=== PATIENT | male | born 1945 | race Caucasian/White ===

== ENCOUNTER → 2016-10-28 | Outpatient (CLI) | payer MEDICARE, OTHER ==
[~2016-10-28] MED LIST: ALBU8I INH; ALEN70TA39 PO; ASPI1TAB69 PO; CENTTAB9 PO; LISI-357 PO; LISI-519 PO; MULT1TAB84 PO; PRED20 PO; SM A81CH CHEW; ZOCO40TA PO
[2016-10-30 23:55] LABS: HCV RNA PCR IU/ML LESS THAN 15 IU/mL (()); HCV RNA PCR LOGIU/ML LESS THAN 1.18 (())
== END ==
LOC: CLAB 09:08
DX: Z11.59 Encounter for screening for other viral diseases (principal)
CPT/HCPCS: 36415; 86803; 87522

== ENCOUNTER → 2017-01-15 | Outpatient (CLI) | payer MEDICARE, OTHER ==
[2017-01-15 09:53] LABS: MEAN CELL VOLUME 90.7 FL (80.0-100.0); MEAN CORPUSCULAR HEMOGLOBIN 30.9 PG (27.0-34.0); PLATELET COUNT 164 TH/MM3 (150-450); RED BLOOD COUNT 5.06 MIL/MM3 (4.50-5.90); RED CELL DISTRIBUTION WIDTH 14.7 % (11.6-17.2); REVIEW FLAG FINAL; WHITE BLOOD COUNT 8.6 TH/MM3 (4.0-11.0)
[2017-01-15 10:12] LABS: ALKALINE PHOSPHATASE 84 U/L (45-117); ALT (GPT) 25 U/L (12-78); ANION GAP 3 MEQ/L (5-15); AST (GOT) 22 U/L (15-37); BICARBONATE 31.1 MEQ/L (21.0-32.0); BLOOD UREA NITROGEN 17 MG/DL (7-18); CHLORIDE 103 MEQ/L (98-107); GLOMERULAR FILTRATION RATE 77 ML/MIN (>89); GLUCOSE,FASTING 97 MG/DL (74-99); HDL CHOLESTEROL 31.3 MG/DL (40.0-60.0); LDL CHOLESTEROL 45 MG/DL (0-99); SODIUM (NA) 137 MEQ/L (136-145); TOTAL BILIRUBIN ADULT 0.4 MG/DL (0.2-1.0)
[2017-01-15 10:18] LABS: POTASSIUM 4.6 MEQ/L (3.5-5.1)
[2017-01-15 10:53] LABS: MICRO ALBUMIN RANDOM URINE RAW 9.2 MG/L (0.0-30.0)
== END ==
LOC: CLAB 09:10
DX: I73.9 Peripheral vascular disease, unspecified (principal); I10 Essential (primary) hypertension
CPT/HCPCS: 36415; 80053; 80061; 82043; 85027

== ENCOUNTER 2017-01-18 08:32 | Emergency (ER) | payer MEDICARE, OTHER ==
[~2017-01-18] VITALS: Ht 175.3 cm; Wt 70.0 kg
[2017-01-18] VITALS (8 sets, daily range): BP systolic 93–175; BP diastolic 60–96; PULSE 97–134; RESP 15–28; TEMP 98.6; O2SAT 74–100
[~2017-01-18 08:32] MED LIST changes: -ASPI1TAB69 PO; -LISI-519 PO; -MULT1TAB84 PO; -PRED20 PO
[2017-01-18] MEDS ORDERED: RESP: ALBUTEROL 2.5 MG/IPRATROPIUM 0.5 MG NEB (SCH) ONE (08:45)
[2017-01-18] MEDS ORDERED: LISI-519 PO (08:50)
[2017-01-18] MEDS ORDERED: ZOCO40TA PO (08:50)
[2017-01-18] MEDS ORDERED: ASPI1TAB69 PO (08:50)
[2017-01-18] MEDS ORDERED: MULT1TAB84 PO (08:50)
--- NOTE | 2017-01-18 09:14 | PD ---
HPI Chief Complaint: Respiratory Distress Time Seen by Provider: 08:56 Travel History International Travel<30 days: No Contact w/Intl Traveler<30days: No Traveled to known affect area: No History of Present Illness HPI This patient complains of shortness of breath. Symptoms are severe. He woke up this morning very short of breath. Paramedics were called. He had room air saturation of 74%. He arrives on a nonrebreather very dyspneic and a heart rate of 140. He is critically ill. He has long-standing COPD and still smokes. He uses inhalers and Spiriva at home. No chest pain or fever. He has chronic cough no alleviating factors. Duration is 3 hours PFSH Past Medical History Arthritis: No Asthma: Yes Autoimmune Disease: No Anxiety: No Depression: No Heart Rhythm Problems: No Cancer: No Cardiovascular Problems: Yes (cabg on mon) High Cholesterol: Yes Chemotherapy: No Chest Pain: No Congestive Heart Failure: No COPD: Yes Cerebrovascular Accident: No Diabetes: Yes (borderline) Diminished Hearing: No Endocrine: No GERD: No Genitourinary: No Hiatal Hernia: No Hypertension: Yes Kidney Stones: No Musculoskeletal: No Neurologic: No Psychiatric: No Reproductive: No Respiratory: Yes Migraines: No Radiation Therapy: No Renal Failure: No Seizures: No Sickle Cell Disease: No Sleep Apnea: No Thyroid Disease: No Ulcer: No Tetanus Vaccination: Unknown ?: Not Past Surgical History Abdominal Surgery: No AICD: No Arteriovenous Shunt: No Cardiac Surgery: Yes Ear Surgery: No Endocrine Surgery: No Eye Surgery: No Genitourinary Surgery: No Insulin Pump: No Joint Replacement: No Oral Surgery: No Pacemaker: No Thoracic Surgery: No Social History Alcohol Use: Yes (OCC) Tobacco Use: Yes (1/2 PPD) Substance Use: No Allergies-Medications (Allergen,Severity, Reaction): Coded Allergies: No Known Allergies (Unverified , 01/18/17) Reported Meds & Prescriptions Reported Meds & Active Scripts Active Reported Zocor (Simvastatin) 40 Mg Tab 40 Mg PO DAILY Multivitamin Adults (Multiple Vitamins W/ Minerals) 1 Tab 1 Tab PO DAILY Lisinopril 5 Mg Tab 5 Mg PO DAILY Aspirin 81 Mg Tabdr 81 Mg PO DAILY Review of Systems General / Constitutional: No: Fever Eyes: No: Visual changes HENT: Positive: Congestion, No: Headaches Cardiovascular: Positive: Tachycardia, No: Chest Pain or Discomfort Respiratory: Positive: Cough, Shortness of Breath, Wheezing Gastrointestinal: No: Abdominal Pain Genitourinary: No: Dysuria Musculoskeletal: No: Pain Skin: No Rash Neurologic: No: Weakness Psychiatric: No: Depression Endocrine: No: Polydipsia Hematologic/Lymphatic: No: Easy Bruising Physical Exam Narrative GENERAL: Well-nourished, well-developed patient in prominent respiratory distress. SKIN: Focused skin assessment reveals no rash and nodules. Skin is Warm and dry. HEAD: Atraumatic. Normocephalic. EYES: Pupils equal and round. No scleral icterus. No injection or drainage. ENT: No nasal bleeding or discharge. Mucous membranes pink and moist. NECK: Trachea midline. No JVD. CARDIOVASCULAR: Regular rate and rhythm. No murmur appreciated. Tachycardic 140 RESPIRATORY: Positive accessory muscle use. Diminished breath sounds throughout with some rhonchi and expiratory wheeze. Breath sounds equal bilaterally. GASTROINTESTINAL: Abdomen soft, non-tender, nondistended. Hepatic and splenic margins not palpable. MUSCULOSKELETAL: No obvious deformities. No clubbing. No cyanosis. No edema. NEUROLOGICAL: Awake and alert. No obvious cranial nerve deficits. Motor grossly within normal limits. Normal speech. PSYCHIATRIC: Appropriate mood and affect; insight and judgment poor. Data Data Last Documented VS Vital Signs Date Time Temp Pulse Resp B/P Pulse Ox O2 Delivery O2 Flow Rate FiO2 01/18/17 10:49 97 15 109/66 100 Nasal Cannula 2 01/18/17 09:57 50 01/18/17 08:48 98.6 Orders Albuterol-Ipratropium Neb (Duoneb Neb) (01/18/17 08:45) Complete Blood Count With Diff (01/18/17 09:05) Basic Metabolic Panel (Bmp) (01/18/17 09:05) Iv Access Insert/Monitor (01/18/17 09:05) Electrocardiogram (01/18/17 09:05) Ecg Monitoring (01/18/17 09:05) Oximetry (01/18/17 09:05) Oxygen Administration (01/18/17 09:05) Chest, Single Ap (01/18/17 09:05) Sodium Chloride 0.9% Flush (Ns Flush) (01/18/17 09:15) Albuterol-Ipratropium Neb (Duoneb Neb) (01/18/17 09:15) Resp Bipap / Cpap Non Invas Vt (01/18/17 ) Sodium Chlor 0.9% 1000 Ml Inj (Ns 1000 M (01/18/17 10:15) Labs Laboratory Tests Test 01/18/17 09:15 White Blood Count 9.8 TH/MM3 Red Blood Count 5.54 MIL/MM3 Hemoglobin 16.8 GM/DL Hematocrit 50.7 % Mean Corpuscular Volume 91.5 FL Mean Corpuscular Hemoglobin 30.3 PG Mean Corpuscular Hemoglobin 33.1 % Concent Red Cell Distribution Width 14.7 % Platelet Count 187 TH/MM3 Mean Platelet Volume 11.5 FL Neutrophils (%) (Auto) 63.6 % Lymphocytes (%) (Auto) 24.8 % Monocytes (%) (Auto) 8.1 % Eosinophils (%) (Auto) 3.1 % Basophils (%) (Auto) 0.4 % Neutrophils # (Auto) 6.2 TH/MM3 Lymphocytes # (Auto) 2.4 TH/MM3 Monocytes # (Auto) 0.8 TH/MM3 Eosinophils # (Auto) 0.3 TH/MM3 Basophils # (Auto) 0.0 TH/MM3 CBC Comment AUTO DIFF Differential Total Cells 100 Counted Neutrophils % (Manual) 60 % Band Neutrophils % 2 % Lymphocytes % 17 % Monocytes % 7 % Eosinophils % 4 % Basophils % 2 % Neutrophils # (Manual) 6.1 TH/MM3 Differential Comment FINAL DIFF MANUAL Atypical Lymphocytes 8 % Platelet Estimate NORMAL Platelet Morphology Comment ENLARGED Red Cell Morphology Comment NORMAL Sodium Level 140 MEQ/L Potassium Level 4.5 MEQ/L Chloride Level 105 MEQ/L Carbon Dioxide Level 28.6 MEQ/L Anion Gap 6 MEQ/L Blood Urea Nitrogen 15 MG/DL Creatinine 0.93 MG/DL Estimat Glomerular Filtration 81 ML/MIN Rate Random Glucose 120 MG/DL Calcium Level 9.2 MG/DL [facility] Medical Decision Making Medical Screen Exam Complete: Yes Emergency Medical Condition: Yes Medical Record Reviewed: Yes Differential Diagnosis Respiratory failure, COPD, pneumonia Narrative Course I have reviewed the patient's electronic medical record. Patient's been here multiple times before due to COPD, last was 2016 Patient is critically ill IV placed I gave him a series of 3 nebulizers He was still very labored despite 100% nonrebreather I initiated BiPAP therapy to ease the work of breathing I gave him IV Solu-Medrol I reviewed his chest x-ray shows some COPD type changes I reviewed his EKG which shows sinus tachycardia 140 Extended cardiac monitoring reveals sinus tachycardia CBC is normal Metabolic profile is normal So this patient was deathly critical on arrival However he fairly rapidly turned around Nebulizers were very helpful After a while on BiPAP I took him off of the BiPAP and placed him on nasal cannula He continued to do well and I have now just ambulated him in the department and he does not feel short of breath Saturations are 99% He wants to go home and does not want to stay in the hospital Most importantly he needs to quit smoking Critical Care Narrative Aggregate critical care time was 37 minutes. Time to perform other separately billable procedures was not included in the critical care time. My time did not include minutes spent treating any other patients simultaneously or on activities that did not directly contribute to the patient's treatment. The services I provided to this patient were to treat and/or prevent clinically significant deterioration that could result in: Respiratory failure, cardiopulmonary arrest, I provided critical care services requiring my management, as noted below: Chart data review, documentation time, medication orders and management, vital sign assessments/reviewing monitor data, ordering and reviewing lab tests, ordering and interpreting/reviewing x-rays and diagnostic studies, care of the patient and discussion of the patient with the admitting physicians. Diagnosis Primary Impression: Acute respiratory failure with hypoxia Additional Impression: COPD exacerbation Additional Instructions: The patient was advised to follow up with their physician and return if they worsen. Quit smoking Med/Other Pt SpecificInfo: Prescription(s) given Scripts Prednisone 20 Mg Tab40 Mg PO DAILY #10 TAB Ref 0 Take 40 mg (2 tablets) daily for 5 days Prov:Samir Le MD 01/18/17 Disposition: 01 DISCHARGE HOME Condition: Stable Samir Le MD Jan 18, 2017 09:14
[2017-01-18] MEDS ORDERED: SODIUM CHLORIDE 0.9% FLUSH 10 ML FLUSH IVF PRN (09:15)
[2017-01-18] MEDS: RESP: ALBUTEROL 2.5 MG/IPRATROPIUM 0.5 MG NEB (SCH) INH ×2 (09:15→09:16)
[2017-01-18 09:34] LABS: AUTOMATED NEUTROPHIL # 6.2 TH/MM3 (1.8-7.7); BASOPHIL % 0.4 % (0.0-2.0); EOSINOPHIL # 0.3 TH/MM3 (0-0.4); EOSINOPHIL % 3.1 % (0.0-4.0); HEMATOCRIT 50.7 % (39.0-51.0); LYMPH % 24.8 % (9.0-44.0); LYMPHOCYTE # 2.4 TH/MM3 (1.0-4.8); MEAN CELL VOLUME 91.5 FL (80.0-100.0); MEAN CORPUSCULAR HEMOGLOBIN 30.3 PG (27.0-34.0); MEAN CORPUSCULAR HGB CONC 33.1 % (32.0-36.0); MONO % 8.1 % (0.0-8.0); NEUT % 63.6 % (16.0-70.0); PLATELET COUNT 187 TH/MM3 (150-450); RED BLOOD COUNT 5.54 MIL/MM3 (4.50-5.90); RED CELL DISTRIBUTION WIDTH 14.7 % (11.6-17.2); WHITE BLOOD COUNT 9.8 TH/MM3 (4.0-11.0)
[2017-01-18 09:37] LABS: HEMO FLAGS AUTO DIFF
[2017-01-18 10:05] LABS: BICARBONATE 28.6 MEQ/L (21.0-32.0); POTASSIUM 4.5 MEQ/L (3.5-5.1)
[2017-01-18] MEDS ORDERED: SODIUM CHLOR 0.9% 1000 ML INJ 1,000 ML IV ONE (10:15)
--- NOTE | 2017-01-18 10:21 | RADRPT ---
EXAM DATE/TIME: 01/18/2017 09:10 [facility] COMPARISON: CHEST SINGLE AP, February 19, 2014, 5:48. INDICATIONS : Short of Breath MEDICAL HISTORY : Diabetes mellitus type II. Chronic obstructive pulmonary disease. Emphysema. Hypertension, Asthma SURGICAL HISTORY : CABG. ENCOUNTER: Initial ACUITY: 2 days PAIN SCORE: 0/10 LOCATION: Bilateral chest FINDINGS: Single AP view of the chest. Hyperaeration suggesting emphysema. Linear opacity in the lung bases ind icating scarring versus atelectasis. No evidence of pleural effusion or pneumothorax. Median sternoto my wires. Cardiomediastinal silhouette within normal limits. CONCLUSION: Chronic lung disease with hyperaeration indicating emphysema. Opacity of the lung bases likely repres enting scarring or atelectasis. Juan Peters MD on January 18, 2017 at 10:18 Board Certified Radiologist. This report was verified electronically.
[2017-01-18 10:27] LABS: ATYPICAL LYMPHOCYTES 8 % (0-0); BANDS 2 % (0-6); BASOPHILS 2 % (0-2); EOSINOPHILS 4 % (0-4); NEUTROPHIL # MANUAL DIFF 6.1 TH/MM3 (1.8-7.7); PLATELET ESTIMATE SMEAR NORMAL (NORMAL); PLATELET MORPHOLOGY ENLARGED (NORMAL); POLYS (SEG NEUTROPHILS) 60 % (16-70); SCAN/DIFF FINAL DIFF MANUAL; WBC DIFF SAMPLE 100
[2017-01-18] MEDS ORDERED: PRED20 PO (11:39)
--- NOTE | 2017-01-18 18:36 | EKG ---
Date Performed: 01/18/2017 Time Performed: 08:38:17 PTAGE: 71 years EKG: SINUS TACHYCARDIA ABNORMAL RHYTHM ECG Compared to prior tracing no significant change DOCTOR: Armando Hylton Interpretating Date/Time 01/18/2017 18:35:39
== END 2017-01-18 12:09 | disposition home or self-care (01) ==
LOC: NEPC 08:32
DX: J96.01 Acute respiratory failure with hypoxia (principal); J44.1 Chronic obstructive pulmonary disease with (acute) exacerbation; Z95.1 Presence of aortocoronary bypass graft; E78.00 Pure hypercholesterolemia, unspecified; J44.9 Chronic obstructive pulmonary disease, unspecified; I10 Essential (primary) hypertension; R00.0 Tachycardia, unspecified
CPT/HCPCS: 71010; 80048; 85007; 85027; 93005; 94002; 94640; 94664; 96360; 99285; J7030

== ENCOUNTER 2017-04-07 07:53 | Inpatient (IN) | payer MEDICARE, OTHER ==
[~2017-04-07] VITALS: Ht 170.2 cm; Wt 67.2 kg
[2017-04-07] VITALS (23 sets, daily range): BP systolic 105–232; BP diastolic 55–103; PULSE 0–122; RESP 0–22; TEMP 96.4–98.7; O2SAT 99–100
[~2017-04-07 07:53] MED LIST changes: -ALBU8I INH; -ALEN70TA39 PO; +ASPI1TAB69 PO; -CENTTAB9 PO; +EPINEPHrine HCL (1:10,000) 1 MG/10 ML SYRINGE IV ONE; -LISI-357 PO; +LISI-519 PO; +MULT1TAB84 PO; +PRED20 PO; -SM A81CH CHEW
[2017-04-07] MEDS ORDERED: methylPREDNISolone SOD SUCC 125 MG/2 ML VIAL IVP ONE (08:15)
[2017-04-07] MEDS: RESP: ALBUTEROL 2.5 MG/IPRATROPIUM 0.5 MG NEB (SCH) INH (08:17)
[2017-04-07 08:22] LABS: AUTOMATED NEUTROPHIL # 4.8 TH/MM3 (1.8-7.7); BASOPHIL # 0.1 TH/MM3 (0-0.2); BASOPHIL % 0.9 % (0.0-2.0); EOSINOPHIL # 0.1 TH/MM3 (0-0.4); EOSINOPHIL % 1.5 % (0.0-4.0); HEMATOCRIT 50.5 % (39.0-51.0); LYMPH % 37.5 % (9.0-44.0); LYMPHOCYTE # 3.5 TH/MM3 (1.0-4.8); MEAN CELL VOLUME 96.7 FL (80.0-100.0); MEAN CORPUSCULAR HGB CONC 32.1 % (32.0-36.0); NEUT % 52.1 % (16.0-70.0); PLATELET COUNT 197 TH/MM3 (150-450); RED BLOOD COUNT 5.22 MIL/MM3 (4.50-5.90); RED CELL DISTRIBUTION WIDTH 15.4 % (11.6-17.2); WHITE BLOOD COUNT 9.3 TH/MM3 (4.0-11.0)
[2017-04-07 08:23] LABS: I-STAT POTASSIUM 4.5 MMOL/L (3.5-4.9); I-STAT SODIUM 143 MMOL/L (138-146)
--- NOTE | 2017-04-07 08:23 | RADRPT ---
EXAM DATE/TIME: 04/07/2017 08:04 [facility] COMPARISON: CHEST SINGLE AP, January 18, 2017, 9:10. INDICATIONS : Post intubation. MEDICAL HISTORY : Diabetes mellitus type II. Chronic obstructive pulmonary disease. Emphysema. Hypertension. Asthma . SURGICAL HISTORY : CABG. ENCOUNTER: Initial ACUITY: 1 day PAIN SCORE: Non-responsive. LOCATION: Bilateral chest FINDINGS: 2 portable frontal views of the chest show an endotracheal tube with the tip 4 cm proximal to amari. Median sternotomy wires. Lungs are hyperaerated. No infiltrate or effusion. An elliptical air-like d ensity is seen overlying the subpulmonic space on the left. The stomach is gas distended. CONCLUSION: 1. Endotracheal tube in good position. 2. Hyperaeration. 3. Small elliptical air like density involving the subpulmonic space on the left. I'm unsure if this relates to eventration of the diaphragm with a gas distended stomach or this could relate to a tiny s ubpulmonic pneumothorax. PA and lateral views of the chest would be able to help differentiate. Lc Packer Jr., MD on April 07, 2017 at 8:18 Board Certified Radiologist. This report was verified electronically.
[2017-04-07 08:27] LABS: HEMO FLAGS AUTO DIFF
[2017-04-07] MEDS ORDERED: MIDAZOLAM HCL 2 MG/2 ML VIAL IV PUSH ONE ×3 (08:30→09:15)
[2017-04-07] MEDS ORDERED: PROPOFOL 1000 MG/100 ML INJ 100 ML IV SCH (08:30)
[2017-04-07] MEDS ORDERED: ETOMIDATE 20 MG/10 ML VIAL IVP ONE (08:30)
[2017-04-07] MEDS ORDERED: SUCCINYLCHOLINE CHLORIDE 200 MG/10 ML VIAL IVP ONE (08:30)
[2017-04-07 08:33] LABS: BLOOD GAS BASE EXCESS -4.7 mmol/L (-2-2); BLOOD GAS CARBOXYHEMOGLOBIN 3.1 % (0-4); BLOOD GAS HCO3 22 mmol/L (22-26); BLOOD GAS METHEMOGLOBIN 0.7 % (0-2); BLOOD GAS O2 HGB SATURATION 96 % (90-100); BLOOD GAS OXYGEN CONTENT 21.8 Vol % (12.0-20.0); BLOOD GAS PCO2 57 mmHg (38-42); BLOOD GAS PO2 459 mmHG (61-120); BLOOD GAS TOTAL HGB 15.3 G/DL (12.0-16.0); CRITICAL VALUE YES; OXYGEN DEVICE VENT; TEMP CORR TO 98.6
[2017-04-07 08:34] LABS: DRAW SITE LT RADIAL; FIO2 100 %; NUMBER OF ARTERIAL PUNCTURES 1; STAT YES; ULNAR PULSE PRESENT; VENT SETTINGS AC475/16/PEEP5
[2017-04-07 08:34] LABS: APTT (PATIENT) 26.5 SEC (24.3-30.1); INTERNATIONAL NORMALIZED RATIO 1.1 RATIO; PROTHROMBIN TIME - PATIENT 11.7 SEC (9.8-11.6)
[2017-04-07 08:44] LABS: MAGNESIUM 2.2 MG/DL (1.5-2.5)
[2017-04-07 08:47] LABS: CREATINE KINASE 67 U/L (39-308)
[2017-04-07 08:48] LABS: ALT (GPT) 25 U/L (12-78); ANION GAP 13 MEQ/L (5-15); AST (GOT) 23 U/L (15-37); BICARBONATE 19.1 MEQ/L (21.0-32.0); BLOOD UREA NITROGEN 19 MG/DL (7-18); CHLORIDE 108 MEQ/L (98-107); GLOMERULAR FILTRATION RATE 73 ML/MIN (>89); POTASSIUM 4.6 MEQ/L (3.5-5.1); SODIUM (NA) 140 MEQ/L (136-145)
--- NOTE | 2017-04-07 08:55 | PD ---
HPI Chief Complaint: Respiratory Distress Time Seen by Provider: 08:00 Travel History International Travel<30 days: No Contact w/Intl Traveler<30days: No Traveled to known affect area: No History of Present Illness HPI 71-year-old male presents through triage in acute cardiopulmonary arrest. They were performing CPR as they wheeled him back. When he got in the room he had agonal respirations and a faint carotid pulse. CPR was held. Blood pressure cycled. Report from triage staff was he had no pulse and no respirations when they got him out of the truck. History is severely limited. [facility] Past Medical History Narrative Medical By records Arthritis: No Asthma: Yes Autoimmune Disease: No Anxiety: No Depression: No Heart Rhythm Problems: No Cancer: No Cardiovascular Problems: Yes (cabg on thu) High Cholesterol: Yes Chemotherapy: No Chest Pain: No Congestive Heart Failure: No COPD: Yes Cerebrovascular Accident: No Diabetes: Yes (borderline) Patient Takes Glucophage: No Diminished Hearing: No Endocrine: No GERD: No Genitourinary: No Hiatal Hernia: No Hypertension: Yes Kidney Stones: No Musculoskeletal: No Neurologic: No Psychiatric: No Reproductive: No Respiratory: Yes Migraines: No Radiation Therapy: No Renal Failure: No Seizures: No Sickle Cell Disease: No Sleep Apnea: No Thyroid Disease: No Ulcer: No ?: Not Past Surgical History Narrative Surgical By records Abdominal Surgery: No AICD: No Arteriovenous Shunt: No Cardiac Surgery: Yes Ear Surgery: No Endocrine Surgery: No Eye Surgery: No Genitourinary Surgery: No Insulin Pump: No Joint Replacement: No Oral Surgery: No Pacemaker: No Thoracic Surgery: No Social History Narrative Social History By records Alcohol Use: Yes (OCC) Tobacco Use: Yes (1/2 PPD) Substance Use: No Allergies-Medications (Allergen,Severity, Reaction): Coded Allergies: No Known Allergies (Unverified , 01/18/17) Reported Meds & Prescriptions Reported Meds & Active Scripts Active Prednisone 20 Mg Tab 40 Mg PO DAILY Take 40 mg (2 tablets) daily for 5 days Reported Zocor (Simvastatin) 40 Mg Tab 40 Mg PO DAILY Multivitamin Adults (Multiple Vitamins W/ Minerals) 1 Tab 1 Tab PO DAILY Lisinopril 5 Mg Tab 5 Mg PO DAILY Aspirin 81 Mg Tabdr 81 Mg PO DAILY Review of Systems ROS Limitations: Clinical Condition Physical Exam Exam Limitations: Clinical Condition Narrative GENERAL: Ill-appearing male patient. SKIN: Warm and dry. HEAD: Normocephalic and atraumatic. EYES: No injection or drainage. Pupils equal bilaterally ENT: No nasal drainage noted. NECK: Supple, trachea midline. CARDIOVASCULAR: Regular rate and rhythm on monitor RESPIRATORY: Decreased aeration with expiratory wheezing bilaterally. GASTROINTESTINAL: Abdomen nondistended. NEUROLOGICAL: Unresponsive Data Data Last Documented VS Vital Signs Date Time Temp Pulse Resp B/P Pulse Ox O2 Delivery O2 Flow Rate FiO2 04/07/17 09:00 100 45 04/07/17 08:21 122 Ventilator 04/07/17 08:21 232/103 04/07/17 08:18 0 04/07/17 08:14 98.2 Orders Troponin I (04/07/17 08:01) Ckmb (Isoenzyme) Profile (04/07/17 08:01) Complete Blood Count With Diff (04/07/17 08:01) I-Stat Profile (04/07/17 08:01) I-Stat Creatinine (04/07/17 08:01) Calcium (04/07/17 08:01) Magnesium (Mg) (04/07/17 08:01) Prothrombin Time / Inr (Pt) (04/07/17 08:01) Act Partial Throm Time (Ptt) (04/07/17 08:01) B-Type Natriuretic Peptide (04/07/17 08:01) Chest, Single Ap (04/07/17 08:01) Electrocardiogram (04/07/17 08:01) Oxygen Administration (04/07/17 08:01) Iv Access Insert/Monitor (04/07/17 08:01) Oximetry (04/07/17 08:01) Thyroid Stimulating Hormone (04/07/17 08:02) Phosphorus (Po4) (04/07/17 08:02) Comprehensive Metabolic Panel (04/07/17 08:02) Arterial Blood Gas (Abg) (04/07/17 ) Type And Screen (04/07/17 08:02) Methylprednisolone So Succ Inj (Solumedr (04/07/17 08:15) Albuterol-Ipratropium Neb (Duoneb Neb) (04/07/17 08:15) Lactic Acid Sepsis Protocol (04/07/17 08:09) Urinalysis - C+S If Indicated (04/07/17 08:09) Blood Culture (04/07/17 08:09) Blood Glucose (04/07/17 08:09) Etomidate Inj (Amidate Inj) (04/07/17 08:30) Succinylcholine Inj (Quelicin Inj) (04/07/17 08:30) Propofol 1000 Mg/100 Ml Inj (Diprivan 10 (04/07/17 08:30) ^ Infusion (04/07/17 08:22) RASS (04/07/17 08:22) Neurological Rass Scale HEDY.Q2H (04/07/17 08:22) Midazolam Inj (Versed Inj) (04/07/17 08:30) Ct Pulmonary Angiogram (04/07/17 08:26) Midazolam Inj (Versed Inj) (04/07/17 09:00) Midazolam 100 Mg/Ml Inj (Versed 100 Mg/M (04/07/17 09:00) Sodium Chlor 0.9% 1000 Ml Inj (Ns 1000 M (04/07/17 09:00) Urine Culture (04/07/17 08:00) Iohexol 350 Inj (Omnipaque 350 Inj) (04/07/17 09:05) Admit Order (Ed Use Only) (04/07/17 09:11) Midazolam Inj (Versed Inj) (04/07/17 09:15) Labs Laboratory Tests Test 04/07/17 04/07/17 04/07/17 04/07/17 08:00 08:06 08:20 08:27 Urine Color YELLOW Urine Turbidity HAZY Urine pH 7.0 Urine Specific [place] 1.017 Urine Protein NEG mg/dL Urine Glucose (UA) NEG mg/dL Urine Ketones NEG mg/dL Urine Occult Blood TRACE Urine Nitrite NEG Urine Bilirubin NEG Urine Urobilinogen LESS THAN 2.0 MG/DL Urine Leukocyte Esterase NEG Urine RBC 2 /hpf Urine WBC 2 /hpf Urine Squamous Epithelial <1 /hpf Cells Urine Bacteria RARE /hpf Urine Hyaline Casts 3 /lpf Urine Mucus FEW /lpf Microscopic Urinalysis Comment CATH-CULTURE IND White Blood Count 9.3 TH/MM3 Red Blood Count 5.22 MIL/MM3 Hemoglobin 16.2 GM/DL Bedside Hemoglobin 17.3 G/DL Hematocrit 50.5 % Bedside Hematocrit 51.0 % Mean Corpuscular Volume 96.7 FL Mean Corpuscular Hemoglobin 31.0 PG Mean Corpuscular Hemoglobin 32.1 % Concent Red Cell Distribution Width 15.4 % Platelet Count 197 TH/MM3 Mean Platelet Volume 11.0 FL Neutrophils (%) (Auto) 52.1 % Lymphocytes (%) (Auto) 37.5 % Monocytes (%) (Auto) 8.0 % Eosinophils (%) (Auto) 1.5 % Basophils (%) (Auto) 0.9 % Neutrophils # (Auto) 4.8 TH/MM3 Lymphocytes # (Auto) 3.5 TH/MM3 Monocytes # (Auto) 0.7 TH/MM3 Eosinophils # (Auto) 0.1 TH/MM3 Basophils # (Auto) 0.1 TH/MM3 CBC Comment AUTO DIFF Differential Total Cells 100 Counted Neutrophils % (Manual) 47 % Band Neutrophils % 4 % Lymphocytes % 42 % Monocytes % 7 % Neutrophils # (Manual) 4.7 TH/MM3 Nucleated Red Blood Cells 1 /100 WBC Differential Comment FINAL DIFF MANUAL Platelet Estimate NORMAL Platelet Morphology Comment NORMAL Ovalocytes 1+ Prothrombin Time 11.7 SEC Prothromb Time International 1.1 RATIO Ratio Activated Partial 26.5 SEC Thromboplast Time Bedside Sodium 143 MMOL/L Sodium Level 140 MEQ/L Bedside Potassium 4.5 MMOL/L Potassium Level 4.6 MEQ/L Bedside Chloride 105 MMOL/L Chloride Level 108 MEQ/L Carbon Dioxide Level 19.1 MEQ/L Anion Gap 13 MEQ/L Bedside Blood Urea Nitrogen 21 MG/DL Blood Urea Nitrogen 19 MG/DL Creatinine 1.01 MG/DL Bedside Creatinine 0.9 MG/DL Estimat Glomerular Filtration 73 ML/MIN Rate Bedside Glucose 142 MG/DL Random Glucose 141 MG/DL Calcium Level 9.3 MG/DL Phosphorus Level 4.5 MG/DL Magnesium Level 2.2 MG/DL Total Bilirubin 0.6 MG/DL Aspartate Amino Transf 23 U/L (AST/SGOT) Alanine Aminotransferase 25 U/L (ALT/SGPT) Alkaline Phosphatase 99 U/L Total Creatine Kinase 67 U/L Troponin I LESS THAN 0.02 NG/ML B-Type Natriuretic Peptide 30 PG/ML Total Protein 7.6 GM/DL Albumin 3.7 GM/DL Thyroid Stimulating Hormone 3.960 uIU/ML 3rd Gen Lactic Acid Level 5.6 mmol/L Blood Type A POSITIVE Antibody Screen NEGATIVE Blood Gas Puncture Site LT RADIAL Blood Gas Patient Temperature 98.6 Blood Gas HCO3 22 mmol/L Blood Gas Base Excess -4.7 mmol/L Blood Gas Oxygen Saturation 96 % Arterial Blood pH 7.21 Arterial Blood Partial 57 mmHg Pressure CO2 Arterial Blood Partial 459 mmHG Pressure O2 Arterial Blood Oxygen Content 21.8 Vol % Arterial Blood 3.1 % Carboxyhemoglobin Arterial Blood Methemoglobin 0.7 % Blood Gas Hemoglobin 15.3 G/DL Oxygen Delivery Device VENT Blood Gas Ventilator Setting AC475/16/PEEP5 Blood Gas Inspired Oxygen 100 % MDM Medical Decision Making Medical Screen Exam Complete: Yes Emergency Medical Condition: Yes Medical Record Reviewed: Yes (past history confirmed) Interpretation(s) CBC & BMP Diagram 04/07/17 08:06 Last 24 hours Impressions Chest X-Ray 04/07/17800 Signed Impressions: Service Date/Time: Friday, April 07, 2017 08:04 - CONCLUSION: 1. Endotracheal tube in good position. 2. Hyperaeration. 3. Small elliptical air like density involving the subpulmonic space on the left. I'm unsure if this relates to eventration of the diaphragm with a gas distended stomach or this could relate to a tiny subpulmonic pneumothorax. PA and lateral views of the chest would be able to help differentiate. Lc Packer Jr., MD Last [address] Angiography 04/07/17825 Signed Impressions: Service Date/Time: Friday, April 07, 2017 08:52 - CONCLUSION: 1. No evidence for pulmonary embolism. 2. Severe emphysema with probable rounded atelectasis left lower lobe. Followup CT chest in 3 months recommended for stability. 3. 7 mm nodule right upper lobe. This can be followed as well. Gurpreet Parnell MD Chest X-Ray 04/07/17800 Signed Impressions: Service Date/Time: Friday, April 07, 2017 08:04 - CONCLUSION: 1. Endotracheal tube in good position. 2. Hyperaeration. 3. Small elliptical air like density involving the subpulmonic space on the left. I'm unsure if this relates to eventration of the diaphragm with a gas distended stomach or this could relate to a tiny subpulmonic pneumothorax. PA and lateral views of the chest would be able to help differentiate. Lc Packer Jr., MD EKG is sinus tachycardia at 110 without STEMI criteria I stats reviewed without acute critical findings ABG shows respiratory acidosis with pH 7.2 and PCO2 of 56, PO2 of 459 will adjust ventilator and repeat Differential Diagnosis copd exacerbation, pneumothorax, mi, pe, acute renal failure with electrolyte abnormality Narrative Course Patient arrived from triage with cardiopulmonary arrest. CPR was performed in route. Triage staff stated he had no pulse and was not breathing when they got him out of the truck. When he arrived in the room CPR was continued he was placed on a monitor and pulse check showed faint carotid pulse and sinus rhythm on the monitor. He was still unresponsive. Proceeded with rapid sequence intubation. Breath sounds tight and with expiratory wheezing post intubation. I stats reviewed without critical intervention needed. EKG without STEMI criteria. Chest x-ray showed no large pneumothorax and ET tube in place but with possible small pneumo so went with patient to CAT scan for review. Talked with son while waiting for team to get ready for CT and he states that about 7: 30 this morning he complained about being short of breath. He was fine yesterday. As they were pulling and here he turned blue and stopped breathing. He confirms his past medical history and states that he is on a blood thinner Plavix. He states he is the part return he lives here locally and will be coming in. [address] with patient. dropped bp, propofol held, ivf bolus given Came back with patient from CT scan. Versed given and propofol restarted when blood pressure improved. versed drip ordered for sedation. Family at bedside and updated. They agree to admission. After review of ABG ventilator was adjusted and ABG will need to be repeated. Critical Care Narrative Aggregate critical care time was 120 minutes. Time to perform other separately billable procedures was not included in the critical care time. My time did not include minutes spent treating any other patients simultaneously or on activities that did not directly contribute to the patient's treatment. The services I provided to this patient were to treat and/or prevent clinically significant deterioration that could result in: Shock, I provided critical care services requiring my management, as noted below: Chart data review, documentation time, medication orders and management, vital sign assessments/reviewing monitor data, ordering and reviewing lab tests, ordering and interpreting/reviewing x-rays and diagnostic studies, care of the patient and discussion of the patient with the admitting physicians. Procedures Procedure Narrative Emergently performed: INTUBATION: The patient was put in optimal position for the procedure. Rapid sequence intubation was initiated by me using 20 milligrams of etomidate IV and 100 milligrams of succinylcholine IV. The patient was intubated with a 8-0 cuffed endotracheal tube. Tube placement was confirmed by visualization of the tube and balloon passing through the cords, capnometry and subsequent chest x- ray. Breath sounds were equal and well aerated bilaterally postintubation. No breath sounds over stomach. Patient tolerated procedure well. Physician Communication Physician Communication dr hoyos agrees to admit Diagnosis Primary Impression: Acute respiratory failure with hypercapnia Additional Impression: COPD exacerbation Admitting Information Admitting Physician Requests: Admit Babs Garcia MD Apr 07, 2017 08:55
[2017-04-07 08:57] LABS: ALKALINE PHOSPHATASE 99 U/L (45-117); TOTAL BILIRUBIN ADULT 0.6 MG/DL (0.2-1.0)
[2017-04-07] MEDS ORDERED: SODIUM CHLOR 0.9% 1000 ML INJ 1,000 ML IV ONE ×3 (09:00→12:15)
[2017-04-07] MEDS ORDERED: MIDAZOLAM 100 MG/ML INJ 100 ML IV SCH (09:00)
[2017-04-07 09:01] LABS: BACTERIA, URINE RARE /hpf; BLOOD, URINE TRACE (NEG); COMMENT (UR) CATH-CULTURE IND; CULTURE IF INDICATED CATH CULTURE IND; GLUCOSE,URINE NEG (NEG); HYALINE CAST, URINE 3 /lpf (RARE); KETONE, URINE NEG (NEG); MUCUS URINE FEW /lpf (OCC); NITRITE,URINE NEG (NEG); SQUAMOUS EPITHELIAL CELL URINE <1 /hpf (0-5); URINE COLOR YELLOW (YELLW/STRAW)
[2017-04-07 09:03] LABS: BANDS 4 % (0-6); CORRECTED NUCLEATED RBC 1 /100 WBC (0-0); NEUTROPHIL # MANUAL DIFF 4.7 TH/MM3 (1.8-7.7); POLYS (SEG NEUTROPHILS) 47 % (16-70); WBC DIFF SAMPLE 100
[2017-04-07 09:04] LABS: OVALOCYTES 1+ (NORMAL); PLATELET ESTIMATE SMEAR NORMAL (NORMAL); PLATELET MORPHOLOGY NORMAL (NORMAL); SCAN/DIFF FINAL DIFF MANUAL
[2017-04-07] MEDS ORDERED: IOHEXOL 350 MG/ML 10 ML VIAL (for RAD DIAG) IV ONE (09:05)
[2017-04-07] MEDS ORDERED: CEFEPIME INJ 2,000 MG in SODIUM CHLORIDE 0.9% INJ 100 ML IV STA (09:13)
[2017-04-07] MEDS ORDERED: AZITHROMYCIN INJ 500 MG in SODIUM CHLOR 0.9% 250 ML INJ 250 ML IV STA (09:13)
--- NOTE | 2017-04-07 09:17 | RADRPT ---
EXAM DATE/TIME: 04/07/2017 08:52 [facility] COMPARISON: No previous studies available for comparison. INDICATIONS : Respiratory distress. IV CONTRAST: 50 cc Omnipaque 350 (iohexol) IV RADIATION DOSE: 7.35 CTDIvol (mGy) MEDICAL HISTORY : Chronic obstructive pulmonary disease. Hypertension. SURGICAL HISTORY : CABG ENCOUNTER: Initial ACUITY: 1 day PAIN SCALE: Non-responsive LOCATION: chest TECHNIQUE: Volumetric scanning of the chest was performed using a pulmonary embolism protocol MIP images were re constructed. Using automated exposure control and adjustment of the mA and/or kV according to patien t size, radiation dose was kept as low as reasonably achievable to obtain optimal diagnostic quality images. DICOM format image data is available electronically for review and comparison. Follow-up recommendations for incidentally detected pulmonary nodules are based at a minimum on nodul e size and patient risk factors according to Fleischner Society Guidelines. FINDINGS: PULMONARY ARTERIES: No filling defects are seen in the pulmonary arteries through the segmental level. LUNGS: There is peripheral opacity left lower lobe posteriorly likely rounded atelectasis. Severe centrilobu lar emphysema. The 7 mm irregular nodule posterior right upper. PLEURAE: There is no pleural thickening or pleural effusion. MEDIASTINUM: There is good visualization of the great vessels of the middle mediastinum. No evidence of mediastin al or hilar adenopathy/mass. Status post CABG. Coronary artery calcifications. MUSCULOSKELETAL: Within normal limits for patient age. MISCELLANEOUS: The visualized upper abdominal organs demonstrate no acute abnormality. Mild prominence of the adrena l glands. CONCLUSION: 1. No evidence for pulmonary embolism. 2. Severe emphysema with probable rounded atelectasis left lower lobe. Followup CT chest in 3 months recommended for stability. 3. 7 mm nodule right upper lobe. This can be followed as well. Gurpreet Parnell MD on April 07, 2017 at 9:09 Board Certified Radiologist. This report was verified electronically.
[2017-04-07] MEDS ORDERED: SODIUM CHLORIDE 0.9% FLUSH 10 ML FLUSH IV FLUSH PRN (09:30)
[2017-04-07] MEDS ORDERED: MISCELLANEOUS NURSING INFORMATION XX SCH (09:30)
[2017-04-07] MEDS ORDERED: RESP: ALBUTEROL 2.5 MG/IPRATROPIUM 0.5 MG NEB (PRN) INH (09:30)
[2017-04-07] MEDS: SODIUM CHLOR 0.9% 1000 ML INJ 1,000 ML IV SCH ×2 (09:30→23:21)
[2017-04-07] MEDS ORDERED: CHLORHEXIDINE GLUCONATE 2 % 1 PACK (2 CLOTHS) TOP PRN (09:30)
[2017-04-07] MEDS ORDERED: fentaNYL DRIP 250 ML IV SCH (09:30)
[2017-04-07] MEDS ORDERED: ACETAMINOPHEN 325 MG TAB PO PRN (09:30)
[2017-04-07] MEDS ORDERED: ADVA250A INH (09:52)
[2017-04-07] MEDS ORDERED: SPIRCAP INH (09:52)
[2017-04-07] MEDS ORDERED: CARV3.12 PO (09:52)
[2017-04-07] MEDS ORDERED: ASPI81TA11 PO (09:52)
[2017-04-07 10:50] LABS: LACTIC ACID GHOST NOT REPORTABLE
[2017-04-07] MEDS: RESP: ALBUTEROL 2.5 MG/IPRATROPIUM 0.5 MG NEB (SCH) NEB ×3 (12:08→19:46)
--- NOTE | 2017-04-07 12:11 | HHI.HP ---
[facility] Service Critical Care Medicine Primary Care Physician Unknown Admission Diagnosis respiratory failure Diagnosis: (1) Acute respiratory failure with hypercapnia Diagnosis: Principal (2) COPD exacerbation Diagnosis: Principal (3) Lactic acidosis Diagnosis: Principal (4) Brief PEA arrest Diagnosis: Principal (5) COPD (chronic obstructive pulmonary disease) Diagnosis: Principal (6) CAD (coronary artery disease) Diagnosis: Secondary Chief Complaint: Acute respiratory failure Brief cardiac arrest Travel History International Travel<30 Days: No Contact w/Intl Traveler <30 Da: No Traveled to Known Affected Are: No Sepsis Criteria SIRS Criteria (2 or more): Heart rate over 90, RR > 20 or PaCO2 < 32 Septic Shock Criteria: Lactic acid >=4 Criteria Outcome: Meets SIRS criteria History of Present Illness Patient is a 71 year old male with past medical history of COPD, ongoing tobacco abuse, previous intubation in 2013 for respiratory failure, history of CABG, hypertension, dyslipidemia. He was brought to the emergency department by his son for worsening shortness of breath and respiratory distress. On reaching triage, while in son's truck he became extremely cyanotic and sustained a brief PEA arrest. Triage staff stated he had no pulse and patient was apneic when they got him out of the truck, and start initiated CPR. Inside ER pulse check showed faint carotid pulse and sinus rhythm on the monitor. He was still unresponsive, with agonal breathing and Dr. Garcia performed rapid sequence intubation. PEA arrest was for less than 2 min before return of spontaneous circulation. EKG no acute changes. CT pulmonary angiogram showed no PE but severe emphysema I evaluated the patient in the emergency department. He is sedated with propofol but moves purposefully. Intermittently follows commands by squeezing hands. Exam reveals bilateral wheezing. Patient had been placed on IV Solu Medrol, scheduled DuoNeb, and Zosyn and azithromycin for possible pneumonia. I believe brief cardiac arrest was secondary to a respiratory arrest, however will rule out acute coronary event. Lactic acid elevation secondary to PEA Review of Systems ROS Limitations: Intubated Past Family Social History Allergies: Coded Allergies: No Known Allergies (Unverified , 01/18/17) Past Medical History Hypoxemic and hypercarbic respiratory failure in 2013 History of ileus Brief PEA arrest post intubation in 2013 CAD status post three-vessel CABG 02/01 Tobacco dependence Hypertension Hyperlipidemia. COPD Past Surgical History History of a two-vessel CABG 01/2014 Foot surgery Reported Medications Prednisone 20 Mg Tab 40 Mg PO DAILY Zocor (Simvastatin) 40 Mg Tab 40 Mg PO DAILY Multivitamin Adults (Multiple Vitamins W/ Minerals) 1 Tab 1 Tab PO DAILY Lisinopril 5 Mg Tab 5 Mg PO DAILY Aspirin 81 Mg Tabdr 81 Mg PO DAILY Active Ordered Medications Reviewed Family History Unable to obtain as the patient is intubated Social History Smokes at least a pack of cigarettes a day Occasional alcohol use Physical Exam Vital Signs Vital Signs Date Time Temp Pulse Resp B/P Pulse Ox O2 Delivery O2 Flow Rate FiO2 04/07/17 11:17 151/77 99 Ventilator 04/07/17 11:07 100 45 04/07/17 11:00 100 100 04/07/17 09:00 100 45 04/07/17 08:21 122 99 Ventilator 04/07/17 08:21 110 232/103 100 Ventilator 04/07/17 08:18 0 0 213/98 04/07/17 08:14 98.2 122 22 213/98 99 Ventilator 04/07/17 08:14 99 04/07/17 08:00 100 04/07/17 07:55 100 Physical Exam GENERAL: Critically ill patient, intubated sedated SKIN: Warm and dry. HEAD: Normocephalic and atraumatic. EYES: No injection or drainage. Pupils equal bilaterally ENT: No nasal drainage noted. Orotracheally intubated NECK: Supple, trachea midline. CARDIOVASCULAR: Regular rate and rhythm on monitor. Well healed CABG scar RESPIRATORY: Air entry decreased bilaterally with bilateral expiratory wheezing GASTROINTESTINAL: Abdomen nondistended. NEUROLOGICAL: Intubated sedated with propofol. Moves all extremities purposefully, intermittently follows commands by squeezing hands Laboratory Laboratory Tests Test 04/07/17 04/07/17 04/07/17 04/07/17 08:00 08:06 08:20 08:27 Urine Color YELLOW Urine Turbidity HAZY Urine pH 7.0 Urine Specific [place] 1.017 Urine Protein NEG Urine Glucose (UA) NEG Urine Ketones NEG Urine Occult Blood TRACE Urine Nitrite NEG Urine Bilirubin NEG Urine Urobilinogen LESS THAN 2.0 Urine Leukocyte Esterase NEG Urine RBC 2 Urine WBC 2 Urine Squamous Epithelial <1 Cells Urine Bacteria RARE Urine Hyaline Casts 3 Urine Mucus FEW Microscopic Urinalysis Comment CATH-CULTURE IND White Blood Count 9.3 Red Blood Count 5.22 Hemoglobin 16.2 Bedside Hemoglobin 17.3 Hematocrit 50.5 Bedside Hematocrit 51.0 Mean Corpuscular Volume 96.7 Mean Corpuscular Hemoglobin 31.0 Mean Corpuscular Hemoglobin 32.1 Concent Red Cell Distribution Width 15.4 Platelet Count 197 Mean Platelet Volume 11.0 Neutrophils (%) (Auto) 52.1 Lymphocytes (%) (Auto) 37.5 Monocytes (%) (Auto) 8.0 Eosinophils (%) (Auto) 1.5 Basophils (%) (Auto) 0.9 Neutrophils # (Auto) 4.8 Lymphocytes # (Auto) 3.5 Monocytes # (Auto) 0.7 Eosinophils # (Auto) 0.1 Basophils # (Auto) 0.1 CBC Comment AUTO DIFF Differential Total Cells 100 Counted Neutrophils % (Manual) 47 Band Neutrophils % 4 Lymphocytes % 42 Monocytes % 7 Neutrophils # (Manual) 4.7 Nucleated Red Blood Cells 1 Differential Comment FINAL DIFF MANUAL Platelet Estimate NORMAL Platelet Morphology Comment NORMAL Ovalocytes 1+ Prothrombin Time 11.7 Prothromb Time International 1.1 Ratio Activated Partial 26.5 Thromboplast Time Bedside Sodium 143 Sodium Level 140 Bedside Potassium 4.5 Potassium Level 4.6 Bedside Chloride 105 Chloride Level 108 Carbon Dioxide Level 19.1 Anion Gap 13 Bedside Blood Urea Nitrogen 21 Blood Urea Nitrogen 19 Creatinine 1.01 Bedside Creatinine 0.9 Estimat Glomerular Filtration 73 Rate Bedside Glucose 142 Random Glucose 141 Calcium Level 9.3 Phosphorus Level 4.5 Magnesium Level 2.2 Total Bilirubin 0.6 Aspartate Amino Transf 23 (AST/SGOT) Alanine Aminotransferase 25 (ALT/SGPT) Alkaline Phosphatase 99 Total Creatine Kinase 67 Troponin I LESS THAN 0.02 B-Type Natriuretic Peptide 30 Total Protein 7.6 Albumin 3.7 Thyroid Stimulating Hormone 3.960 3rd Gen Lactic Acid Level 5.6 Blood Type A POSITIVE Antibody Screen NEGATIVE Blood Gas Puncture Site LT RADIAL Blood Gas Patient Temperature 98.6 Blood Gas HCO3 22 Blood Gas Base Excess -4.7 Blood Gas Oxygen Saturation 96 Arterial Blood pH 7.21 Arterial Blood Partial 57 Pressure CO2 Arterial Blood Partial 459 Pressure O2 Arterial Blood Oxygen Content 21.8 Arterial Blood 3.1 Carboxyhemoglobin Arterial Blood Methemoglobin 0.7 Blood Gas Hemoglobin 15.3 Oxygen Delivery Device VENT Blood Gas Ventilator Setting AC475/16/PEEP5 Blood Gas Inspired Oxygen 100 Date/Time Procedure Status Source Growth 04/07/17 08:20 Aerobic Blood Culture Received Blood Peripheral Pending 04/07/17 08:20 Anaerobic Blood Culture Received Blood Peripheral Pending 04/07/17 08:00 Urine Culture Received Urine Catheterized Urine Pending Result Diagram: 04/07/1780504/07/[address] angiogram shows no PE. severe emphysema Septic Shock Reassessment Heart: Other Lungs: Diminished Skin: Warm Peripheral Pulses: Bounding Right Radial Bounding Left Radial Assessment and Plan Assessment and Plan PLAN: 1) Neuro: -- Sedation with propofol and fentanyl -- Daily sedation vacation, in 24 hours 2) CVS Brief PEA arrest secondary to respiratory arrest Lactic acidosis Hx of CAD, HTN and Hyperlipidemia s/p CABG 02/01 -- Cardiac arrest secondary to severe hypoxemia and respiratory arrest -- Patient follows commands and moves purposefully, no indication for induced hypothermia -- Hold all antihypertensives. Levophed as needed for hypertension -- NS bolus x2 -- Continue post op ASA and statin -- Lactic acidosis secondary to brief cardiac arrest, repeat in 6 hours 3) Pulmonary Acute hypercapnic respiratory failure Acute COPD exacerbation Hx of COPD Tobacco abuse -- Emergently intubated in the emergency department. Continue mech vent ACV. -- continue bronchodilators every 4 hours scheduled and when necessary -- IV Solu-Medrol 125 mg 1 and 60 every 8 hours -- Empiric Zosyn and azithromycin 4) GI / Nutrition -- Nothing by mouth, IV Protonix 5) Renal / Metabolic -- Strict I/O, monitor and replete electrolytes, follow BUN creatinine. 6) Endo -- SSI for glycemic control if needed -- Electrolyte replacement per protocol 7) Heme -- Monitor CBC CMP coags 8) ID -- Continue empiric Zosyn and azithromycin -- f/u Blood and sputum cultures 9) Prophylaxis GI - Protonix DVT - Lovenox CCT 55 Code Status Full Discussed Condition With Dr. Garcia and patient's ex who was at bedside Problem Qualifiers (1) COPD (chronic obstructive pulmonary disease): (2) CAD (coronary artery disease): Cece Sylvester MD Apr 07, 2017 12:11
[2017-04-07] MEDS ORDERED: POTASSIUM CHLOR 40 MEQ PREMIX 100 ML IV PRN ×2 (12:15)
[2017-04-07] MEDS ORDERED: POTASSIUM PHOSPHATE INJ 30 MMOL in SODIUM CHLOR 0.9% 250 ML INJ 250 ML IV PRN (12:15)
[2017-04-07] MEDS ORDERED: POTASSIUM CHLORIDE 25 MEQ EFFERVESCENT TAB PO PRN (12:15)
[2017-04-07] MEDS ORDERED: POTASSIUM CHLOR 20 MEQ PREMIX 100 ML IV PRN ×2 (12:15)
[2017-04-07] MEDS ORDERED: POTASSIUM PHOSPHATE MONOBASIC 500 MG TAB PO PRN (12:15)
[2017-04-07] MEDS ORDERED: MAGNESIUM OXIDE 400 MG TAB PO PRN (12:15)
[2017-04-07] MEDS ORDERED: MAGNESIUM SULFATE INJ 4 GM in SODIUM CHLORIDE 0.9% INJ 92 ML IV PRN (12:15)
[2017-04-07] MEDS ORDERED: MAGNESIUM SULFATE INJ 2 GM in SODIUM CHLORIDE 0.9% INJ 96 ML IV PRN (12:15)
[2017-04-07] MEDS ORDERED: POTASSIUM PHOSPHATE MONOBASIC 500 MG TAB PO/TUBE PRN (12:15)
[2017-04-07] MEDS ORDERED: SODIUM PHOSPHATE INJ 30 MMOL in SODIUM CHLOR 0.9% 250 ML INJ 240 ML IV PRN (12:15)
[2017-04-07] MEDS: ENOXAPARIN SODIUM 40 MG/0.4 ML SYRINGE SQ SCH (13:16)
[2017-04-07] MEDS: PIPERACIL-TAZO 4.5 GM PREMIX 100 ML IV SCH ×3 (13:17→23:20)
[2017-04-07] MEDS: PROPOFOL 1000 MG/100 ML INJ 100 ML IV SCH ×3 (13:26→23:51)
--- NOTE | 2017-04-07 18:10 | EKG ---
Date Performed: 04/07/2017 Time Performed: 08:04:22 PTAGE: 71 years EKG: SINUS TACHYCARDIA POSSIBLE RIGHT ATRIAL ENLARGEMENT POSSIBLE LEFT ATRIAL ENLARGEMENT INCOMP LETE RIGHT BUNDLE BRANCH BLOCK MODERATE ST DEPRESSION ABNORMAL ECG PREVIOUS TRACING : 01/18/2017 08.38 Compared to the previous tracing, now possible biatrial enl argement, ST depressions appear new DOCTOR: Gustavo Lopez Interpretating Date/Time 04/07/2017 18:08:10
[2017-04-07] MEDS: CHLORHEXIDINE 0.12% (ORAL KIT) 15 ML CUP MT SCH (23:20)
[2017-04-07] MEDS: SODIUM CHLORIDE 0.9% FLUSH 10 ML FLUSH IV FLUSH SCH (23:20)
[2017-04-08] VITALS (27 sets, daily range): BP systolic 93–138; BP diastolic 52–70; PULSE 64–105; RESP 12–87; TEMP 94.3–98.5; O2SAT 94–100
[2017-04-08] MEDS: RESP: ALBUTEROL 2.5 MG/IPRATROPIUM 0.5 MG NEB (SCH) NEB ×6 (00:07→20:28)
[2017-04-08 00:56] LABS: MAGNESIUM 1.9 MG/DL (1.5-2.5)
[2017-04-08] MEDS: CHLORHEXIDINE GLUCONATE 2 % 1 PACK (2 CLOTHS) TOP SCH (04:00)
[2017-04-08] MEDS: PROPOFOL 1000 MG/100 ML INJ 100 ML IV SCH (04:25)
[2017-04-08] MEDS: PIPERACIL-TAZO 4.5 GM PREMIX 100 ML IV SCH ×4 (04:26→23:25)
[2017-04-08 05:36] LABS: AUTOMATED NEUTROPHIL # 11.2 TH/MM3 (1.8-7.7); HEMATOCRIT 40.8 % (39.0-51.0); HEMO FLAGS DIFF FINAL; LYMPH % 7.4 % (9.0-44.0); MEAN CELL VOLUME 94.2 FL (80.0-100.0); MEAN CORPUSCULAR HEMOGLOBIN 30.4 PG (27.0-34.0); MEAN CORPUSCULAR HGB CONC 32.3 % (32.0-36.0); MONO % 5.3 % (0.0-8.0); NEUT % 87.3 % (16.0-70.0); PLATELET COUNT 124 TH/MM3 (150-450); RED BLOOD COUNT 4.33 MIL/MM3 (4.50-5.90); RED CELL DISTRIBUTION WIDTH 14.9 % (11.6-17.2); WHITE BLOOD COUNT 12.8 TH/MM3 (4.0-11.0)
[2017-04-08 06:19] LABS: ALKALINE PHOSPHATASE 66 U/L (45-117); ALT (GPT) 40 U/L (12-78); ANION GAP 7 MEQ/L (5-15); AST (GOT) 26 U/L (15-37); BICARBONATE 26.4 MEQ/L (21.0-32.0); BLOOD UREA NITROGEN 14 MG/DL (7-18); CHLORIDE 110 MEQ/L (98-107); GLOMERULAR FILTRATION RATE 118 ML/MIN (>89); POTASSIUM 3.8 MEQ/L (3.5-5.1); SODIUM (NA) 143 MEQ/L (136-145); TOTAL BILIRUBIN ADULT 0.5 MG/DL (0.2-1.0)
--- NOTE | 2017-04-08 06:41 | RADRPT ---
EXAM DATE/TIME: 04/08/2017 04:52 [facility] COMPARISON: CHEST SINGLE AP, April 07, 2017, 8:04. INDICATIONS : Short of breath. MEDICAL HISTORY : Diabetes mellitus type II. Chronic obstructive pulmonary disease. SURGICAL HISTORY : CABG. ENCOUNTER: Subsequent ACUITY: 4 - 6 days PAIN SCORE: 0/10 LOCATION: Bilateral chest FINDINGS: The support devices remain in place. There is no evidence of pneumothorax. There is mild atelectasis in the left lung base. Otherwise the lungs remain grossly clear. There are no pleural effusions. The heart size is stable. CONCLUSION: Mild left lower lung atelectasis. Noam Hampton MD on April 08, 2017 at 6:39 Board Certified Radiologist. This report was verified electronically.
[2017-04-08] MEDS ORDERED: POTASSIUM CHLORIDE 25 MEQ EFFERVESCENT TAB PO ONE (06:45)
[2017-04-08] MEDS ORDERED: BUMETANIDE INJ 1 MG/4 ML VIAL IV PUSH ONE (06:45)
--- NOTE | 2017-04-08 06:50 | HHI.CCPN ---
Subjective Remarks/Hospital Course Patient is a 71 year old male with past medical history of COPD, ongoing tobacco abuse, previous intubation in 2014 for respiratory failure, history of CABG, hypertension, dyslipidemia. He was brought to the emergency department by his son for worsening shortness of breath and respiratory distress. On reaching triage, while in son's truck he became extremely cyanotic and sustained a brief PEA arrest. Triage staff stated he had no pulse and patient was apneic when they got him out of the truck, and start initiated CPR. Inside ER pulse check showed faint carotid pulse and sinus rhythm on the monitor. He was still unresponsive, with agonal breathing and Dr. Garcia performed rapid sequence intubation. PEA arrest was for less than 2 min before return of spontaneous circulation. EKG no acute changes. CT pulmonary angiogram showed no PE but severe emphysema. I evaluated the patient in the emergency department. He is sedated with propofol but moves purposefully. Intermittently follows commands by squeezing hands. Exam reveals bilateral wheezing. Patient had been placed on IV Solu Medrol, scheduled DuoNeb, and Zosyn and azithromycin for possible pneumonia. I believe brief cardiac arrest was secondary to a respiratory arrest, however will rule out acute coronary event. Lactic acid elevation secondary to PEA SUBJ 04/08: Patient remains intubated sedated, moving all extremities on lightening sedation, purposeful with upper extremity. Chest x-ray shows mild atelectasis Objective Vital Signs Date Time Temp Pulse Resp B/P Pulse Ox O2 Delivery O2 Flow Rate FiO2 04/08/17 04:19 100 45 04/08/17 04:00 97.6 67 12 109/58 04/07/17 11:17 Ventilator Intake and Output 04/07/17 04/07/17 04/08/17 08:00 16:00 00:00 Intake Total 2312 ml 615 ml Output Total 350 ml 550 ml Balance 1962 ml 65 ml Result Diagram: 04/08/17 0453 04/08/17 0453 Other Results Laboratory Tests Test 04/07/17 08:27 Blood Gas Puncture Site LT RADIAL Blood Gas Patient Temperature 98.6 Blood Gas HCO3 22 mmol/L (22-26) Blood Gas Base Excess -4.7 mmol/L (-2-2) Blood Gas Oxygen Saturation 96 % (90-100) Arterial Blood pH 7.21 (7.380-7.420) Arterial Blood Partial 57 mmHg (38-42) Pressure CO2 Arterial Blood Partial 459 mmHG Pressure O2 (61-120) Arterial Blood Oxygen Content 21.8 Vol % (12.0-20.0) Arterial Blood 3.1 % (0-4) Carboxyhemoglobin Arterial Blood Methemoglobin 0.7 % (0-2) Blood Gas Hemoglobin 15.3 G/DL (12.0-16.0) Oxygen Delivery Device VENT Blood Gas Ventilator Setting AC475/16/PEEP5 Blood Gas Inspired Oxygen 100 % Imaging CT angiogram shows no PE. severe emphysema Objective Remarks GENERAL: Critically ill patient, intubated sedated SKIN: Warm and dry. HEAD: Normocephalic and atraumatic. EYES: No injection or drainage. Pupils equal bilaterally ENT: No nasal drainage noted. Orotracheally intubated NECK: Supple, trachea midline. CARDIOVASCULAR: Regular rate and rhythm on monitor. Well healed CABG scar RESPIRATORY: Air entry decreased bilaterally with mild bilateral expiratory wheezing GASTROINTESTINAL: Abdomen nondistended. NEUROLOGICAL: Intubated sedated with propofol. Moves all extremities purposefully. Gets agitated on lightening sedation Urinary Catheter: Yes Assessment to: Continue A/P Assessment and Plan PLAN: 1) Neuro: -- Sedation with propofol and fentanyl -- Daily sedation vacation -- Maintained Precedex for facilitating ventilator weaning 2) CVS Brief PEA arrest secondary to respiratory arrest Lactic acidosis Hx of CAD, HTN and Hyperlipidemia s/p CABG 02/01 -- Cardiac arrest secondary to severe hypoxemia and respiratory arrest -- Patient was moving purposefully after PEA, no indication for induced hypothermia -- Holding all antihypertensives. Levophed as needed for hypertension -- s/p NS bolus x2 -- Continue post op ASA and statin -- Lactic acidosis secondary to brief cardiac arrest, now resolved -- Give Bumex 1 mg 1 with potassium supplements 3) Pulmonary Acute hypercapnic respiratory failure Acute COPD exacerbation Hx of COPD Tobacco abuse -- Continue [facility] vent ACV. -- continue bronchodilators every 4 hours scheduled and when necessary -- IV Solu-Medrol 60 every 8 hours -- Empiric Zosyn and azithromycin -- Start spontaneous breathing trials today 4) GI / Nutrition -- Nothing by mouth, IV Protonix -- Start tube feeds if patient remains intubated 5) Renal / Metabolic -- Strict I/O, monitor and replete electrolytes, follow BUN creatinine. 6) Endo -- SSI for glycemic control if needed -- Electrolyte replacement per protocol 7) Heme -- Monitor CBC CMP coags 8) ID -- Continue empiric Zosyn and azithromycin -- f/u Blood and sputum cultures 9) Prophylaxis GI - Protonix DVT - Lovenox CCT 32 Patient remains critically ill from acute hypercapnic respiratory failure and COPD exacerbation status post short PEA arrest. His neurological status has to be reevaluated with sedation off Cece Sylvester MD Apr 08, 2017 06:50
[2017-04-08] MEDS: CHLORHEXIDINE 0.12% (ORAL KIT) 15 ML CUP MT SCH ×2 (08:00→20:00)
[2017-04-08] MEDS: PANTOPRAZOLE SODIUM 40 MG VIAL IV SCH (08:26)
[2017-04-08] MEDS: ENOXAPARIN SODIUM 40 MG/0.4 ML SYRINGE SQ SCH (08:27)
[2017-04-08] MEDS: AZITHROMYCIN INJ 500 MG in SODIUM CHLOR 0.9% 250 ML INJ 250 ML IV SCH (08:27)
[2017-04-08] MEDS: MULTIVITAMINS/MINERALS THERAPEUTIC TAB PO SCH (08:27)
[2017-04-08] MEDS: SODIUM CHLORIDE 0.9% FLUSH 10 ML FLUSH IV FLUSH SCH ×2 (08:28→20:09)
[2017-04-08] MEDS: ASPIRIN EC 81 MG TABEC PO SCH (08:28)
[2017-04-08] MEDS: SODIUM CHLOR 0.9% 1000 ML INJ 1,000 ML IV SCH (12:10)
[2017-04-09] VITALS (18 sets, daily range): BP systolic 119–177; BP diastolic 60–92; PULSE 89–115; RESP 17–58; TEMP 97.1–98.4; O2SAT 95–100
[2017-04-09] MEDS: RESP: ALBUTEROL 2.5 MG/IPRATROPIUM 0.5 MG NEB (SCH) NEB ×7 (00:15→22:19)
[2017-04-09] MEDS: SODIUM CHLOR 0.9% 1000 ML INJ 1,000 ML IV SCH (01:30)
[2017-04-09] MEDS: CHLORHEXIDINE GLUCONATE 2 % 1 PACK (2 CLOTHS) TOP SCH (04:00)
[2017-04-09] MEDS: PIPERACIL-TAZO 4.5 GM PREMIX 100 ML IV SCH ×2 (05:04→11:00)
--- NOTE | 2017-04-09 05:17 | RADRPT ---
EXAM DATE/TIME: 04/09/2017 03:58 [facility] COMPARISON: CHEST SINGLE AP, April 08, 2017, 4:52. INDICATIONS : Respiratory disease. MEDICAL HISTORY : Diabetes mellitus type II. Chronic obstructive pulmonary disease. Emphysema. Hypertension. Asthma . SURGICAL HISTORY : CABG. ENCOUNTER: Subsequent ACUITY: 3 days PAIN SCORE: 0/10 LOCATION: Bilateral chest FINDINGS: The endotracheal tube and NG tube have been removed. There is no pneumothorax. The lung weeks appear to be well aerated and grossly clear. No new or focal pulmonary infiltrates are demonstrated. The pr eviously noted left lower lung atelectasis has improved. CONCLUSION: There is good aeration of both lung weeks. Noam Hampton MD on April 09, 2017 at 5:15 Board Certified Radiologist. This report was verified electronically.
[2017-04-09 06:18] LABS: AUTOMATED NEUTROPHIL # 9.8 TH/MM3 (1.8-7.7); BASOPHIL % 0.1 % (0.0-2.0); EOSINOPHIL # 0.1 TH/MM3 (0-0.4); EOSINOPHIL % 0.5 % (0.0-4.0); HEMATOCRIT 41.1 % (39.0-51.0); HEMO FLAGS DIFF FINAL; LYMPH % 13.2 % (9.0-44.0); LYMPHOCYTE # 1.6 TH/MM3 (1.0-4.8); MEAN CELL VOLUME 92.2 FL (80.0-100.0); MEAN CORPUSCULAR HEMOGLOBIN 30.2 PG (27.0-34.0); MEAN CORPUSCULAR HGB CONC 32.8 % (32.0-36.0); MONO % 6.2 % (0.0-8.0); PLATELET COUNT 141 TH/MM3 (150-450); RED BLOOD COUNT 4.46 MIL/MM3 (4.50-5.90); RED CELL DISTRIBUTION WIDTH 15.3 % (11.6-17.2); WHITE BLOOD COUNT 12.3 TH/MM3 (4.0-11.0)
[2017-04-09 06:38] LABS: ANION GAP 7 MEQ/L (5-15); AST (GOT) 23 U/L (15-37); BICARBONATE 28.2 MEQ/L (21.0-32.0); BLOOD UREA NITROGEN 15 MG/DL (7-18); CHLORIDE 109 MEQ/L (98-107); GLOMERULAR FILTRATION RATE 96 ML/MIN (>89); MAGNESIUM 2.3 MG/DL (1.5-2.5); POTASSIUM 3.9 MEQ/L (3.5-5.1); SODIUM (NA) 144 MEQ/L (136-145)
[2017-04-09 06:39] LABS: ALT (GPT) 36 U/L (12-78)
[2017-04-09 06:42] LABS: ALKALINE PHOSPHATASE 67 U/L (45-117); TOTAL BILIRUBIN ADULT 0.4 MG/DL (0.2-1.0)
[2017-04-09] MEDS: CHLORHEXIDINE 0.12% (ORAL KIT) 15 ML CUP MT SCH ×2 (08:00→20:00)
[2017-04-09] MEDS: ENOXAPARIN SODIUM 40 MG/0.4 ML SYRINGE SQ SCH (08:27)
[2017-04-09] MEDS: ASPIRIN EC 81 MG TABEC PO SCH (08:27)
[2017-04-09] MEDS: PANTOPRAZOLE SODIUM 40 MG VIAL IV SCH (08:27)
[2017-04-09] MEDS: MULTIVITAMINS/MINERALS THERAPEUTIC TAB PO SCH (08:27)
[2017-04-09] MEDS: SODIUM CHLORIDE 0.9% FLUSH 10 ML FLUSH IV FLUSH SCH ×2 (08:28→20:42)
[2017-04-09] MEDS: AZITHROMYCIN INJ 500 MG in SODIUM CHLOR 0.9% 250 ML INJ 250 ML IV SCH (08:28)
--- NOTE | 2017-04-09 12:27 | PD.TRANSFR ---
Transfer Summary Admission Date Apr 07, 2017 at 09:12 Admitting Diagnosis respiratory failure Diagnoses: (1) Acute respiratory failure with hypercapnia Diagnosis: Principal (2) COPD exacerbation Diagnosis: Principal (3) Lactic acidosis Diagnosis: Principal (4) Brief PEA arrest Diagnosis: Principal (5) COPD (chronic obstructive pulmonary disease) Diagnosis: Secondary (6) CAD (coronary artery disease) Diagnosis: Secondary Transfer Summary/Subjective Patient is a 71 year old male with past medical history of COPD, ongoing tobacco abuse, previous intubation in 2013 for respiratory failure, history of CABG, hypertension, dyslipidemia. He was brought to the emergency department by his son for worsening shortness of breath and respiratory distress. On reaching triage, while in son's truck he became extremely cyanotic and sustained a brief PEA arrest. Triage staff stated he had no pulse and patient was apneic when they got him out of the truck, and start initiated CPR. Inside ER pulse check showed faint carotid pulse and sinus rhythm on the monitor. He was still unresponsive, with agonal breathing and Dr. Garcia performed rapid sequence intubation. PEA arrest was for less than 2 min before return of spontaneous circulation. EKG no acute changes. CT pulmonary angiogram showed no PE but severe emphysema I evaluated the patient in the emergency department. He is sedated with propofol but moves purposefully. Intermittently follows commands by squeezing hands. Exam reveals bilateral wheezing. Patient had been placed on IV Solu Medrol, scheduled DuoNeb, and Zosyn and azithromycin for possible pneumonia. I believe brief cardiac arrest was secondary to a respiratory arrest, however will rule out acute coronary event. Lactic acid elevation secondary to PEA SUBJ 04/08: Patient remains intubated sedated, moving all extremities on lightening sedation, purposeful with upper extremity. Chest x-ray shows mild atelectasis 04/09: Patient was extubated yesterday tolerating well alert oriented 3. Breathing comfortably, currently receiving breathing treatments Objective Vital Signs Date Time Temp Pulse Resp B/P Pulse Ox O2 Delivery O2 Flow Rate FiO2 04/09/17 10:00 101 04/09/17 08:26 97 Nasal Cannula 2.50 04/09/17 08:00 98.2 28 154/83 04/08/17 10:20 95 Intake and Output 04/08/17 04/08/17 04/09/17 08:00 16:00 00:00 Intake Total 805 ml 750 ml 1450 ml Output Total 650 ml 5000 ml 1750 ml Balance 155 ml -4250 ml -300 ml Result Diagram: 04/09/17 0521 04/09/17 0521 Other Results Microbiology Date/Time Procedure Status Source Growth 04/07/17 08:00 Urine Culture - Final Complete Urine Catheterized Urine NO GROWTH IN [address] angiogram shows no PE. severe emphysema Objective Remarks GENERAL: 71-year-old male not in acute distress receiving breathing treatment SKIN: Warm and dry. HEAD: Normocephalic and atraumatic. EYES: No injection or drainage. Pupils equal bilaterally ENT: No nasal drainage noted. NECK: Supple, trachea midline. CARDIOVASCULAR: Regular rate and rhythm on monitor. Well healed CABG scar RESPIRATORY: Air entry decreased bilaterally with no wheezing GASTROINTESTINAL: Abdomen nondistended. NEUROLOGICAL: Alert awake oriented 3 no focal deficits Urinary Catheter: Yes Assessment to: Continue A/P Assessment and Plan PLAN: 1) Neuro: --All sedation discontinued 2) CVS Brief PEA arrest secondary to respiratory arrest Lactic acidosis Hx of CAD, HTN and Hyperlipidemia s/p CABG 02/01 -- Cardiac arrest secondary to severe hypoxemia and respiratory arrest -- No evident residual neurological deficits secondary to brief PEA arrest -- Holding all antihypertensives. Resume as clinically indicated -- Continue ASA and statin -- Lactic acidosis secondary to brief cardiac arrest, now resolved -- Given Bumex 1 mg 1 with potassium supplements 04/08 3) Pulmonary Acute hypercapnic respiratory failure Acute COPD exacerbation Hx of COPD Tobacco abuse -- Continue bronchodilators every 4 hours scheduled and when necessary -- IV Solu-Medrol 60 every 8 hours, reduce to 40 q12 -- Start Symbicort and Spiriva, consult pulmonology -- Smoking cessation counselled -- Empiric Zosyn and azithromycin 4) GI / Nutrition -- Heart healthy diet, Protonix 5) Renal / Metabolic -- Strict I/O, monitor and replete electrolytes, follow BUN creatinine. 6) Endo -- SSI for glycemic control if needed -- Electrolyte replacement per protocol 7) Heme -- Monitor CBC CMP coags 8) ID -- Currently on empiric Zosyn and azithromycin. Change to by mouth Levaquin -- f/u Blood and sputum cultures 9) Prophylaxis GI - Protonix DVT - Lovenox Level 2 Transfer to Med surg. Consult hospitalist to assume care in a.m. PT OCece Abad MD Apr 09, 2017 12:27
[2017-04-09] MEDS ORDERED: BUDESONIDE-FORMOTEROL 160/4.5 MCG INHALER INH SCH (12:30)
[2017-04-09] MEDS: TIOTROPIUM BROMIDE 18 MCG INH INH SCH (12:30)
[2017-04-09] MEDS: LEVOFLOXACIN 750 MG TAB PO SCH (14:23)
[2017-04-09] MEDS: FAMOTIDINE 20 MG TAB PO SCH ×2 (14:23→20:41)
[2017-04-10] VITALS (13 sets, daily range): BP systolic 128–170; BP diastolic 72–90; PULSE 89–107; RESP 18–20; TEMP 97.9–98.5; O2SAT 93–97
[2017-04-10] MEDS: BUDESONIDE-FORMOTEROL 160/4.5 MCG INHALER INH SCH ×3 (01:27→20:20)
[2017-04-10] MEDS: RESP: ALBUTEROL 2.5 MG/IPRATROPIUM 0.5 MG NEB (SCH) NEB ×7 (04:00→21:47)
[2017-04-10] MEDS: CHLORHEXIDINE GLUCONATE 2 % 1 PACK (2 CLOTHS) TOP SCH (04:00)
[2017-04-10] MEDS: CHLORHEXIDINE 0.12% (ORAL KIT) 15 ML CUP MT SCH (07:21)
--- NOTE | 2017-04-10 08:22 | MB ---
cc: WenceslaoMAXIMUSKRISTEL DATE OF CONSULTATION 04/09/2017 REASON FOR CONSULTATION Respiratory distress and COPD. HISTORY OF PRESENT ILLNESS This is 71-year-old white male who has had a prior history of coronary artery disease and COPD. He has been a long-time smoker until this past week. The patient apparently has some increasing chest congestion, cough and shortness of breath and called his son to drop him off at the emergency room. Upon arrival, the patient was in extreme distress and was cyanotic and apneic and apparently when he was brought out of the truck he briefly had a PEA arrest and had to be resuscitated. He was intubated since he had agonal breathing and his came to sinus and the EKG showed no acute changes. His hemodynamics stabilized after intubation and he was then placed on the intensive care unit. Pulmonary angiogram showed severe emphysema with no pulmonary emboli. The patient then had to be sedated overnight, started on IV antibiotics including Zosyn and Zithromax for probable pneumonia and IV Solu-Medrol. He then was weaned to C-PAP and extubated and now on a nasal cannula at 2-1/2 liter. He is alert, oriented, cooperative and denies shortness of breath at rest. He does have a mild cough and mild wheezing, but no chest pains or abdominal pains. He has had some soreness across the sternum from his . PAST MEDICAL HISTORY Also included: 1. Coronary artery disease 2. Coronary bypass grafting in January of 2014 3. History of cardiorespiratory arrest in 2013. 4. Hypertension 5. Hyperlipidemia 6. History for foot surgery. ALLERGIES None listed. HABITS The patient smoked a pack and half per day for over 40 years and quit last week. Occasional alcohol use. FAMILY HISTORY Noncontributory MEDICATION LIST Reviewed from the chart. ALLERGIES None REVIEW OF SYSTEMS The patient has lost weight. He has no headaches, blackouts. He has epigastric distress and reflux. No urinary symptoms or flank pains. No leg or calf muscle pains. He has some joint pains. PHYSICAL EXAMINATION This is an elderly averagely built white male is in no acute distress. VITAL SIGNS: Blood pressure is 210/100, respirations 22, temperature 98.2. HEENT: Head normocephalic. Pupils reactive. Tongue is moist. Throat is clear. Nasal mucosa injected. NECK: Supple. No lymphadenopathy. CHEST: Equal movements with decreased excursions and diminished breath sounds at the periphery. Occasional crackles heard at the lung bases with wheezes bilaterally. HEART: The heart sounds irregular S1-S2. No murmur. No S3. ABDOMEN: Soft and benign. No masses, organomegaly or tenderness. EXTREMITIES: No edema. No calf tenderness. Reflexes 1+ with no gross motor deficits. NEUROLOGIC: Cranial nerves grossly intact. RECTAL: Exam is deferred. IMPRESSION 1. COPD with acute exacerbation 2. Respiratory failure resolved 3. He has coronary artery disease status post coronary bypass grafting. 4. Hypertension 5. History of cardiac arrest. PLAN Patient has been placed on O2 at 2-1/2 liters, nebulized DuoNeb solution three times a day and as needed. We will continue with the other medications mentioned above and the patient will have a pulmonary function study done and is clinically stable. This patient will be continued on antibiotic therapy as ordered. Steroids will be tapered down to 40 mg Solu-Medrol b.i.d. and switched to prednisone 40 mg per day in two days. Thank you Dr. Sylvester for this consultation. MD HENRY Salcido/YUDITH /11:22 PM /8:13 AM
[2017-04-10] MEDS: MULTIVITAMINS/MINERALS THERAPEUTIC TAB PO SCH (09:44)
[2017-04-10] MEDS: FAMOTIDINE 20 MG TAB PO SCH ×2 (09:45→20:20)
[2017-04-10] MEDS: ASPIRIN EC 81 MG TABEC PO SCH (09:45)
[2017-04-10] MEDS: ENOXAPARIN SODIUM 40 MG/0.4 ML SYRINGE SQ SCH (09:45)
[2017-04-10] MEDS: SODIUM CHLORIDE 0.9% FLUSH 10 ML FLUSH IV FLUSH SCH ×2 (09:46→20:20)
[2017-04-10] MEDS: TIOTROPIUM BROMIDE 18 MCG INH INH SCH (09:46)
[2017-04-10] MEDS: LEVOFLOXACIN 750 MG TAB PO SCH (14:27)
--- NOTE | 2017-04-10 14:42 | HHI.PR ---
Subjective Remarks Patient seen and examined today. Vitals are stable and he is afebrile. States he feels well. Ambulatory without issues. Denies SOB. NO complaints. Objective Vital Signs Date Time Temp Pulse Resp B/P Pulse Ox O2 Delivery O2 Flow Rate FiO2 04/10/17 11:58 98.4 106 20 128/78 95 04/10/17 08:44 98.5 105 20 144/77 94 04/10/17 08:05 103 04/10/17 04:15 97.9 89 18 150/80 97 04/10/17 02:30 160/80 04/10/17 01:35 94 Nasal Cannula 04/10/17 01:26 156/88 Automatic Cuff 04/10/17 00:30 98.5 97 19 170/90 97 04/09/17 23:40 97 Nasal Cannula 2.00 04/09/17 22:20 96 Nasal Cannula 4.00 04/09/17 20:30 98.4 115 19 177/92 97 04/09/17 20:00 100 04/09/17 17:07 98 Nasal Cannula 3.00 04/09/17 16:00 97.1 104 18 166/84 95 I/O 04/09/17 04/09/17 04/09/17 04/10/17 04/10/17 04/10/17 07:00 15:00 23:00 07:00 15:00 23:00 Intake Total 1168 ml 560 ml 800 ml 900 ml Output Total 2000 ml 700 ml 1000 ml 1800 ml 600 ml Balance -832 ml -140 ml -200 ml -900 ml -600 ml Intake Oral 350 ml 220 ml 800 ml 900 ml IV Total 818 ml 340 ml Output Urine Total 2000 ml 700 ml 1000 ml 1800 ml 600 ml # Bowel Movements 0 0 0 0 Result Diagram: 04/09/17 0521 04/09/17 0521 Imaging Last Impressions Chest X-Ray 04/09/17 0600 Signed Impressions: Service Date/Time: March 03:58 - CONCLUSION: There is good aeration of both lung weeks. Noam Hampton MD CT Angiography 04/07/17 0826 Signed Impressions: Service Date/Time: Friday, April 07, 2017 08:52 - CONCLUSION: 1. No evidence for pulmonary embolism. 2. Severe emphysema with probable rounded atelectasis left lower lobe. Followup CT chest in 3 months recommended for stability. 3. 7 mm nodule right upper lobe. This can be followed as well. Gurpreet Parnell MD Objective Remarks GENERAL: sitting in bed comfortably, nad SKIN: Warm and dry. HEAD: Normocephalic. EYES: No scleral icterus. No injection or drainage. NECK: Supple, trachea midline. No JVD or lymphadenopathy. CARDIOVASCULAR: Regular rate and rhythm without murmurs, gallops, or rubs. RESPIRATORY: Breath sounds equal bilaterally. No accessory muscle use. GASTROINTESTINAL: Abdomen soft, non-tender, nondistended. MUSCULOSKELETAL: No cyanosis, or edema. BACK: Nontender without obvious deformity. No CVA tenderness. A/P Problem List: (1) COPD (chronic obstructive pulmonary disease) ICD Code: J44.9 (2) Brief PEA arrest (3) Acute respiratory failure with hypercapnia ICD Code: J96.02 (4) Sepsis ICD Code: A41.9 Assessment and Plan 71 yo male who presented to the ED with a chief complaint of shortness of breath , experienced a brief PEA arrest in the ED. The patient was found to be apneic and without pulse, CPR was initiated. The patient was intubated and had ROSC after 2 minutes. The patient was initially admitted to critical care for his cardiac arrest secondary to respiratory arrest. Patient extubated on 04/09 and care has been transferred to hospitalist. Plan as below: Cardiac arrest secondary to severe hypoxemia and respiratory arrest on admssion 04/07 Brief PEA arrest secondary to respiratory arrest Hx of CAD, HTN and Hyperlipidemia s/p CABG 02/01 -- No evident residual neurological deficits secondary to brief PEA arrest -- Holding all antihypertensives. Resume as clinically indicated -- Continue ASA and statin -- Lactic acidosis secondary to brief cardiac arrest, now resolved -- Antihypertensives on hold, currently normotensive Acute hypercapnic respiratory failure Acute COPD exacerbation -- Continue bronchodilators every 4 hours scheduled and when necessary -- IV Solu-Medrol 40 mg q12 (for 2 days then switch to prednisone 40 mg PO BID on 04/12) -- Initiated Symbicort and Spiriva -- Smoking cessation counselled -- Dr. Wade pulmonology consulted: PFTs when clinically stable. Cont breathing treatments Sepsis -- Was on empiric Zosyn and azithromycin, Change to by mouth Levaquin on 04/09. Due to blood cultures will switch back to IV Zosyn 04/10. -- urine cultures neg x 48 hrs -- 1/3 blood cultures growing gram wesley (prelim) -- repeat blood cultures ordered DVT - Lovenox GI prophy while on steroids Discharge Planning D/C pending clinical improvement, and repeat blood cultures. Problem Qualifiers (1) COPD (chronic obstructive pulmonary disease): Raiza Ruelas MD Apr 10, 2017 14:42
[2017-04-10] MEDS ORDERED: MAGNESIUM HYDROXIDE SUSP 30 ML CUP PO ONE (15:15)
[2017-04-10] MEDS ORDERED: PIPERACIL-TAZO 4.5 GM PREMIX 100 ML IV SCH (16:00)
--- NOTE | 2017-04-10 18:08 | HHI.PR ---
Subjective Remarks Alert and breathing well. Off O2 and sats 96. Good output . Off steroids. Objective Vital Signs Date Time Temp Pulse Resp B/P Pulse Ox O2 Delivery O2 Flow Rate FiO2 04/10/17 16:25 94 04/10/17 16:22 98.5 107 20 135/79 93 04/10/17 11:58 98.4 106 20 128/78 95 04/10/17 08:44 98.5 105 20 144/77 94 04/10/17 08:05 103 04/10/17 04:15 97.9 89 18 150/80 97 04/10/17 02:30 160/80 04/10/17 01:35 94 Nasal Cannula 04/10/17 01:26 156/88 Automatic Cuff 04/10/17 00:30 98.5 97 19 170/90 97 04/09/17 23:40 97 Nasal Cannula 2.00 04/09/17 22:20 96 Nasal Cannula 4.00 04/09/17 20:30 98.4 115 19 177/92 97 04/09/17 20:00 100 I/O 04/09/17 04/09/17 04/09/17 04/10/17 04/10/17 04/10/17 07:00 15:00 23:00 07:00 15:00 23:00 Intake Total 1168 ml 560 ml 800 ml 900 ml Output Total 2000 ml 700 ml 1000 ml 1800 ml 600 ml 500 ml Balance -832 ml -140 ml -200 ml -900 ml -600 ml -500 ml Intake Oral 350 ml 220 ml 800 ml 900 ml IV Total 818 ml 340 ml Output Urine Total 2000 ml 700 ml 1000 ml 1800 ml 600 ml 500 ml # Bowel Movements 0 0 0 0 Result Diagram: 04/09/1752004/09/17520 Objective Remarks This is an elderly averagely built white male is in no acute distress. HEENT: Head normocephalic. Pupils reactive. Tongue is moist. Throat is clear. Nasal mucosa injected. NECK: Supple. No lymphadenopathy. CHEST: Equal movements with decreased excursions and diminished breath sounds at the periphery. Occasional crackles heard at the lung bases with wheezes bilaterally. HEART: The heart sounds irregular S1-S2. No murmur. No S3. ABDOMEN: Soft and benign. No masses, organomegaly or tenderness. EXTREMITIES: No edema. No calf tenderness. Reflexes 1+ with no gross motor deficits. NEUROLOGIC: Cranial nerves grossly intact. Assessment and Plan Assessment and Plan IMPRESSION 1. COPD with acute exacerbation 2. Respiratory failure resolved 3. He has coronary artery disease status post coronary bypass grafting. 4. Hypertension 5. History of cardiac arrest. Plan : 1. Cont Symbicort 160/4.5 Mcg , 2puffs bid. 2. D/C O2 3. D/C Zosyn and add Augmentin 875 mg BID 4. D/C Nebs and add Spiriva 1 cap daily. 5. Home if stable over weekend Yuan Wade MD Apr 10, 2017 18:08
[2017-04-10] MEDS: predniSONE 10 MG TAB PO SCH (20:20)
[2017-04-10] MEDS: DOCUSATE SODIUM 50 MG/SENNA 8.6 MG TAB PO SCH (20:20)
[2017-04-10] MEDS: AMOXICILLIN/CLAVULANATE K 875 MG TAB PO SCH (20:39)
[2017-04-11] VITALS (10 sets, daily range): BP systolic 105–137; BP diastolic 67–80; PULSE 93–114; RESP 17–20; TEMP 97.7–98.3; O2SAT 92–95
[2017-04-11] MEDS: RESP: ALBUTEROL 2.5 MG/IPRATROPIUM 0.5 MG NEB (SCH) NEB ×4 (03:26→20:02)
[2017-04-11] MEDS: CHLORHEXIDINE GLUCONATE 2 % 1 PACK (2 CLOTHS) TOP SCH (04:00)
[2017-04-11] MEDS: CHLORHEXIDINE 0.12% (ORAL KIT) 15 ML CUP MT SCH ×2 (07:03→20:00)
[2017-04-11] MEDS: predniSONE 10 MG TAB PO SCH ×2 (09:06→21:59)
[2017-04-11] MEDS: DOCUSATE SODIUM 50 MG/SENNA 8.6 MG TAB PO SCH ×2 (09:06→21:59)
[2017-04-11] MEDS: MULTIVITAMINS/MINERALS THERAPEUTIC TAB PO SCH (09:06)
[2017-04-11] MEDS: ASPIRIN EC 81 MG TABEC PO SCH (09:07)
[2017-04-11] MEDS: FAMOTIDINE 20 MG TAB PO SCH ×2 (09:07→21:59)
[2017-04-11] MEDS: SODIUM CHLORIDE 0.9% FLUSH 10 ML FLUSH IV FLUSH SCH ×2 (09:07→22:07)
[2017-04-11] MEDS: AMOXICILLIN/CLAVULANATE K 875 MG TAB PO SCH ×2 (09:07→21:59)
[2017-04-11] MEDS: TIOTROPIUM BROMIDE 18 MCG INH INH SCH (09:08)
[2017-04-11] MEDS: ENOXAPARIN SODIUM 40 MG/0.4 ML SYRINGE SQ SCH (09:08)
[2017-04-11] MEDS: BUDESONIDE-FORMOTEROL 160/4.5 MCG INHALER INH SCH ×2 (09:08→21:59)
--- NOTE | 2017-04-11 12:34 | HHI.PR ---
Subjective Remarks Patient seen and examined today. Vitals are stable and he is afebrile. States he feel great. Ambulatory without issues. Denies SOB. NO complaints. Has not had a BM since Thursday. Objective Vital Signs Date Time Temp Pulse Resp B/P Pulse Ox O2 Delivery O2 Flow Rate FiO2 04/11/17 08:52 98.2 107 18 105/67 94 04/11/17 08:09 92 21 04/11/17 08:05 93 04/11/17 05:40 98.1 100 17 129/76 95 04/11/17 00:00 97.7 100 19 120/70 94 04/10/17 21:47 94 04/10/17 21:00 98.1 104 18 128/72 93 04/10/17 20:00 100 04/10/17 16:25 94 04/10/17 16:22 98.5 107 20 135/79 93 I/O 04/10/17 04/10/17 04/10/17 04/11/17 04/11/17 04/11/17 07:00 15:00 23:00 07:00 15:00 23:00 Intake Total 900 ml 900 ml 1200 ml Output Total 1800 ml 600 ml 500 ml Balance -900 ml -600 ml 400 ml 1200 ml Intake Oral 900 ml 900 ml 1200 ml Output Urine Total 1800 ml 600 ml 500 ml # Voids 2 3 # Bowel Movements 0 0 0 Result Diagram: 04/09/1752004/09/17 0521 Imaging Last Impressions Chest X-Ray 04/09/17 0600 Signed Impressions: Service Date/Time: March 03:58 - CONCLUSION: There is good aeration of both lung weeks. Noam Hampton MD CT Angiography 04/07/17 0826 Signed Impressions: Service Date/Time: Friday, April 07, 2017 08:52 - CONCLUSION: 1. No evidence for pulmonary embolism. 2. Severe emphysema with probable rounded atelectasis left lower lobe. Followup CT chest in 3 months recommended for stability. 3. 7 mm nodule right upper lobe. This can be followed as well. Gurpreet Parnell MD Objective Remarks GENERAL: sitting in bed comfortably, nad SKIN: Warm and dry. HEAD: Normocephalic. EYES: No scleral icterus. No injection or drainage. NECK: Supple, trachea midline. No JVD or lymphadenopathy. CARDIOVASCULAR: Tachycardic rate and rhythm without murmurs, gallops, or rubs. RESPIRATORY: Breath sounds equal bilaterally. No accessory muscle use. GASTROINTESTINAL: Abdomen soft, non-tender, nondistended. MUSCULOSKELETAL: No cyanosis, or edema. BACK: Nontender without obvious deformity. No CVA tenderness. A/P Problem List: (1) COPD (chronic obstructive pulmonary disease) ICD Code: J44.9 (2) Brief PEA arrest (3) Acute respiratory failure with hypercapnia ICD Code: J96.02 (4) Sepsis ICD Code: A41.9 Assessment and Plan 71 yo male who presented to the ED with a chief complaint of shortness of breath , experienced a brief PEA arrest in the ED. The patient was found to be apneic and without pulse, CPR was initiated. The patient was intubated and had ROSC after 2 minutes. The patient was initially admitted to critical care for his cardiac arrest secondary to respiratory arrest. Patient extubated on 04/09 and care has been transferred to hospitalist. Plan as below: Cardiac arrest secondary to severe hypoxemia and respiratory arrest on admssion 04/07 Brief PEA arrest secondary to respiratory arrest Hx of CAD, HTN and Hyperlipidemia s/p CABG 02/01 -- No evident residual neurological deficits secondary to brief PEA arrest -- Holding all antihypertensives. Resume as clinically indicated -- Continue ASA and statin -- Lactic acidosis secondary to brief cardiac arrest, now resolved -- Antihypertensives on hold, currently normotensive Acute hypercapnic respiratory failure Acute COPD exacerbation -- Continue bronchodilators every 4 hours scheduled and when necessary -- Prednisone 10 mg PO BID -- Initiated Symbicort and Spiriva -- Smoking cessation counselled -- Dr. Wade pulmonology consulted: PFTs when clinically stable. Cont breathing treatments Sepsis -- Was on empiric Zosyn and azithromycin, Change to by mouth Levaquin on 04/09. Due to blood cultures will switch back to IV Zosyn 04/10. Switched by pulm to Augmentin 875 mg BID -- urine cultures neg to date -- 1/3 blood cultures growing gram wesley -- repeat blood cultures ordered 04/10 and are negative, if continue to be negative for 48 hrs and continues to clinically improve will dc on PO abx DVT - Lovenox milk of mag constipation Discharge Planning D/C tomorrow if continues to clinically improve and blood cultures negative. Problem Qualifiers (1) COPD (chronic obstructive pulmonary disease): Razia Ruelas MD Apr 11, 2017 12:34
[2017-04-11] MEDS ORDERED: MAGNESIUM HYDROXIDE SUSP 30 ML CUP PO ONE (13:45)
[2017-04-12] VITALS: BP 130/72; PULSE 9; RESP 20; TEMP 98; O2SAT 93
[2017-04-12 03:41] VITALS: O2SAT 93
[2017-04-12] MEDS: RESP: ALBUTEROL 2.5 MG/IPRATROPIUM 0.5 MG NEB (SCH) NEB ×2 (03:41→08:57)
[2017-04-12 04:00] VITALS: BP 125/69; PULSE 101; RESP 18; TEMP 97.8; O2SAT 96
[2017-04-12] MEDS: CHLORHEXIDINE GLUCONATE 2 % 1 PACK (2 CLOTHS) TOP SCH (04:00)
[2017-04-12] MEDS: CHLORHEXIDINE 0.12% (ORAL KIT) 15 ML CUP MT SCH (07:16)
[2017-04-12 08:05] VITALS: PULSE 93
[2017-04-12 08:19] VITALS: BP 127/76; PULSE 104; RESP 20; TEMP 98.5; O2SAT 96
[2017-04-12] MEDS: MULTIVITAMINS/MINERALS THERAPEUTIC TAB PO SCH (09:14)
[2017-04-12] MEDS: predniSONE 10 MG TAB PO SCH (09:15)
[2017-04-12] MEDS: AMOXICILLIN/CLAVULANATE K 875 MG TAB PO SCH (09:15)
[2017-04-12] MEDS: DOCUSATE SODIUM 50 MG/SENNA 8.6 MG TAB PO SCH (09:15)
[2017-04-12] MEDS: FAMOTIDINE 20 MG TAB PO SCH (09:15)
[2017-04-12] MEDS: ASPIRIN EC 81 MG TABEC PO SCH (09:16)
[2017-04-12] MEDS: SODIUM CHLORIDE 0.9% FLUSH 10 ML FLUSH IV FLUSH SCH (09:16)
[2017-04-12] MEDS: BUDESONIDE-FORMOTEROL 160/4.5 MCG INHALER INH SCH (09:17)
[2017-04-12] MEDS: ENOXAPARIN SODIUM 40 MG/0.4 ML SYRINGE SQ SCH (09:17)
[2017-04-12] MEDS: TIOTROPIUM BROMIDE 18 MCG INH INH SCH (09:17)
--- NOTE | 2017-04-12 11:57 | HHI.PR ---
Subjective Remarks Patient seen and examined today. Vitals are stable and he is afebrile. States he feel great. Ambulatory without issues. Denies SOB. NO complaints. Has not yet had BM, but wants to do suppository at home and have BM in privacy. His brother yesterday and wants to know if its safe for him to travel to [place] for . Objective Vital Signs Date Time Temp Pulse Resp B/P Pulse Ox O2 Delivery O2 Flow Rate FiO2 04/12/17 08:19 98.5 104 20 127/76 96 04/12/17 08:05 93 04/12/17 04:00 97.8 101 18 125/69 96 04/12/17 03:41 93 21 04/12/17 00:00 98.0 9 20 130/72 93 04/11/17 20:45 106 04/11/17 20:03 94 21 04/11/17 20:00 98.2 102 20 126/71 94 04/11/17 16:43 98.3 108 18 130/77 94 04/11/17 13:02 98.0 114 18 137/80 94 I/O 04/11/17 04/11/17 04/11/17 04/12/17 04/12/17 04/12/17 07:00 15:00 23:00 07:00 15:00 23:00 Intake Total 1200 ml 720 ml 120 ml Balance 1200 ml 720 ml 120 ml Intake Oral 1200 ml 720 ml 120 ml # Voids 3 12 1 # Bowel Movements 0 Result Diagram: 04/09/17 0521 04/09/17 0521 Imaging Last Impressions Chest X-Ray 04/09/17 0600 Signed Impressions: Service Date/Time: March 03:58 - CONCLUSION: There is good aeration of both lung weeks. Noam Hampton MD CT Angiography 04/07/17 0826 Signed Impressions: Service Date/Time: Friday, April 07, 2017 08:52 - CONCLUSION: 1. No evidence for pulmonary embolism. 2. Severe emphysema with probable rounded atelectasis left lower lobe. Followup CT chest in 3 months recommended for stability. 3. 7 mm nodule right upper lobe. This can be followed as well. Gurpreet Parnell MD Objective Remarks GENERAL: sitting in bed comfortably, nad SKIN: Warm and dry. HEAD: Normocephalic. EYES: No scleral icterus. No injection or drainage. NECK: Supple, trachea midline. No JVD or lymphadenopathy. CARDIOVASCULAR: Tachycardic rate and rhythm without murmurs, gallops, or rubs. RESPIRATORY: Breath sounds equal bilaterally. No accessory muscle use. GASTROINTESTINAL: Abdomen soft, non-tender, nondistended. MUSCULOSKELETAL: No cyanosis, or edema. BACK: Nontender without obvious deformity. No CVA tenderness. A/P Problem List: (1) COPD (chronic obstructive pulmonary disease) ICD Code: J44.9 (2) Brief PEA arrest (3) Acute respiratory failure with hypercapnia ICD Code: J96.02 (4) Sepsis ICD Code: A41.9 Assessment and Plan 71 yo male who presented to the ED with a chief complaint of shortness of breath , experienced a brief PEA arrest in the ED. The patient was found to be apneic and without pulse, CPR was initiated. The patient was intubated and had ROSC after 2 minutes. The patient was initially admitted to critical care for his cardiac arrest secondary to respiratory arrest. Patient extubated on 04/09 and care has been transferred to hospitalist. Plan as below: Cardiac arrest secondary to severe hypoxemia and respiratory arrest on admission 04/07 Brief PEA arrest secondary to respiratory arrest Hx of CAD, HTN and Hyperlipidemia s/p CABG 02/01 -- No evident residual neurological deficits secondary to brief PEA arrest -- Holding all antihypertensives. Resume as clinically indicated -- Continue ASA and statin -- Lactic acidosis secondary to brief cardiac arrest, now resolved -- Antihypertensives on hold, currently normotensive Acute hypercapnic respiratory failure Acute COPD exacerbation -- Continue bronchodilators every 4 hours scheduled and when necessary -- Prednisone 10 mg PO BID -- Initiated Symbicort and Spiriva -- Smoking cessation counselled -- Dr. Wade pulmonology consulted: PFTs when clinically stable. Cont breathing treatments Sepsis -- Was on empiric Zosyn and azithromycin, Change to by mouth Levaquin on 04/09. Due to blood cultures will switch back to IV Zosyn 04/10. Switched by pulm to Augmentin 875 mg BID -- urine cultures neg to date -- 1/3 blood cultures growing gram wesley -- repeat blood cultures ordered 04/10 and are negative to date DVT - Lovenox milk of mag constipation Discharge Planning D/C home today. - out of state [place] a week, informed patient he may travel if he feels up to it. - d/c home on abx and steroids, follow up with PCP and pulmonology. Problem Qualifiers (1) COPD (chronic obstructive pulmonary disease): Raiza Ruelas MD Apr 12, 2017 11:57
[2017-04-12] MEDS ORDERED: FAMO20TA2 PO (11:59)
[2017-04-12] MEDS ORDERED: PRED10 PO (11:59)
[2017-04-12] MEDS ORDERED: AMOX875T2 PO (11:59)
[2017-04-12 12:00] VITALS: BP 141/75; PULSE 104; RESP 20; TEMP 98.1; O2SAT 96
[2017-04-12] MEDS ORDERED: GLYCERIN ADULT 2 GM SUPP RECTAL ONE (12:00)
--- NOTE | 2017-04-12 12:00 | HHI.DCPOC ---
Discharge Care Plan Diagnosis: (1) COPD (chronic obstructive pulmonary disease) (2) Acute respiratory failure with hypercapnia (3) Brief PEA arrest Goals to Promote Your Health * To prevent worsening of your condition and complications * To maintain your health at the optimal level Directions to Meet Your Goals Take your medications as prescribed Follow your dietary instruction Follow activity as directed Keep your appointments as scheduled Take your immunizations and boosters as scheduled If your symptoms worsen call your PCP, if no PCP go to Urgent Care Center or Emergency Room Smoking is Dangerous to Your Health. Avoid second hand smoke Call the 24-hour hour crisis hotline for domestic abuse at Raiza Ruelas MD Apr 12, 2017 12:00
--- NOTE | 2017-04-12 14:20 | HHI.DS ---
Discharge Summary Admission Date Apr 07, 2017 at 09:12 Discharge Date: Apr 12, 2017 Admitting Diagnosis respiratory failure [facility] Dr. Hernandes Brief History "Patient is a 71 year old male with past medical history of COPD, ongoing tobacco abuse, previous intubation in 2013 for respiratory failure, history of CABG, hypertension, dyslipidemia. He was brought to the emergency department by his son for worsening shortness of breath and respiratory distress. On reaching triage, while in son's truck he became extremely cyanotic and sustained a brief PEA arrest. Triage staff stated he had no pulse and patient was apneic when they got him out of the truck, and start initiated CPR. Inside ER pulse check showed faint carotid pulse and sinus rhythm on the monitor. He was still unresponsive, with agonal breathing and Dr. Garcia performed rapid sequence intubation. PEA arrest was for less than 2 min before return of spontaneous circulation. EKG no acute changes. CT pulmonary angiogram showed no PE but severe emphysema I evaluated the patient in the emergency department. He is sedated with propofol but moves purposefully. Intermittently follows commands by squeezing hands. Exam reveals bilateral wheezing. Patient had been placed on IV Solu Medrol, scheduled DuoNeb, and Zosyn and azithromycin for possible pneumonia. I believe brief cardiac arrest was secondary to a respiratory arrest, however will rule out acute coronary event. Lactic acid elevation secondary to PEA" Dr. Higinio MONTANEZ CBC/BMP: 04/09/17 0521 04/09/17 0521 Imaging Last Impressions Chest X-Ray 04/09/17 0600 Signed Impressions: Service Date/Time: March 03:58 - CONCLUSION: There is good aeration of both lung weeks. Noam Hampton MD CT Angiography 04/07/17 0826 Signed Impressions: Service Date/Time: Friday, April 07, 2017 08:52 - CONCLUSION: 1. No evidence for pulmonary embolism. 2. Severe emphysema with probable rounded atelectasis left lower lobe. Followup CT chest in 3 months recommended for stability. 3. 7 mm nodule right upper lobe. This can be followed as well. Gurpreet Parnell MD Transfer Summary Patient is a 71 year old male with past medical history of COPD, ongoing tobacco abuse, previous intubation in 2013 for respiratory failure, history of CABG, hypertension, dyslipidemia. He was brought to the emergency department by his son for worsening shortness of breath and respiratory distress. On reaching triage, while in son's truck he became extremely cyanotic and sustained a brief PEA arrest. Triage staff stated he had no pulse and patient was apneic when they got him out of the truck, and start initiated CPR. Inside ER pulse check showed faint carotid pulse and sinus rhythm on the monitor. He was still unresponsive, with agonal breathing and Dr. Garcia performed rapid sequence intubation. PEA arrest was for less than 2 min before return of spontaneous circulation. EKG no acute changes. CT pulmonary angiogram showed no PE but severe emphysema I evaluated the patient in the emergency department. He is sedated with propofol but moves purposefully. Intermittently follows commands by squeezing hands. Exam reveals bilateral wheezing. Patient had been placed on IV Solu Medrol, scheduled DuoNeb, and Zosyn and azithromycin for possible pneumonia. I believe brief cardiac arrest was secondary to a respiratory arrest, however will rule out acute coronary event. Lactic acid elevation secondary to PEA SUBJ 04/08: Patient remains intubated sedated, moving all extremities on lightening sedation, purposeful with upper extremity. Chest x-ray shows mild atelectasis 04/09: Patient was extubated yesterday tolerating well alert oriented 3. Breathing comfortably, currently receiving breathing treatments Hospital Course 71 yo male who presented to the ED with a chief complaint of shortness of breath , experienced a brief PEA arrest in the ED. The patient was found to be apneic and without pulse, CPR was initiated. The patient was intubated and had ROSC after 2 minutes. The patient was initially admitted to critical care for his cardiac arrest secondary to respiratory arrest. Patient extubated on 04/09 and care has been transferred to hospitalist. Earlene was managed for a COPD exacerbation by Dr. Hernandes. 09/24 blood cultures grew gram neg wesley on day 3. Patient was on empiric zosyn and azithromycin. Repeat blood cultures were obtained and negative. He was switched to Augmentin. By April 11 patient had reached max benefit from inpatient hospitalization and was d.c home with PCP and pulmonology follow up. Was to complete a course of abx and steroid taper. Pt Condition on Discharge: Stable Discharge Disposition: Discharge Home Discharge Instructions DIET: Follow Instructions for: As Tolerated, No Restrictions Activities you can perform: Weight Bearing as Farhad New Medications: Amoxicillin-Clavulanate (Amoxicillin-Clavulanate) 875-125 mg Tab 875 MG PO Q12HR Infection #20 TAB Famotidine (Famotidine) 20 Mg Tab 20 MG PO DAILY GI prophy #5 TAB Prednisone (Prednisone) 10 Mg Tab 10 MG PO BID COPD exacerbation #10 TAB Continued Medications: Aspirin DR (Aspirin EC) 81 Mg Tabdr 81 MG PO DAILY Ref 0 TAB Carvedilol (Carvedilol) 3.125 Mg Tab 3.125 MG PO BID #60 Ref 0 TAB Fluticasone-Salmeterol Inh (Advair Diskus Inh) 250-50 Mcg/Blist Aer 1 PUFF INH BID Rinse mouth after use. #1 Ref 0 INHALER Lisinopril (Lisinopril) 5 Mg Tab 5 MG PO DAILY Blood Pressure Management #30 Ref 0 TAB Simvastatin (Zocor) 40 Mg Tab 40 MG PO DAILY Cholesterol Management #30 Ref 0 TAB Tiotropium Inh (Spiriva Handihaler) 18 Mcg Cap 18 MCG INH DAILY 1 capsule = 18 mcg COPD #30 Ref 0 CAP Discontinued Medications: Prednisone (Prednisone) 20 Mg Tab 40 MG PO DAILY Take 40 mg (2 tablets) daily for 5 days #10 Ref 0 TAB Raiza Ruelas MD Apr 12, 2017 14:20
== END 2017-04-12 14:00 | disposition home or self-care (01) | DRG 208 ==
LOC: NEPC 07:53 → NEDA 09:12 → HIMN 10:50 → N05A 04-09 14:50
PROVIDERS: ADMIT Family Medicine; ATTEND Family Medicine
PROC: 5A1945Z Respiratory Ventilation, 24-96 Consecutive Hours (ICD-10-PCS; principal; 2017-04-07)
PROC: 5A12012 Performance of Cardiac Output, Single, Manual (ICD-10-PCS; 2017-04-07)
PROC: 0BH17EZ Insertion of Endotracheal Airway into Trachea, Via Natural or Artificial Opening (ICD-10-PCS; 2017-04-07)
DX: J96.02 Acute respiratory failure with hypercapnia (principal); I46.8 Cardiac arrest due to other underlying condition; E87.2 Acidosis; J44.1 Chronic obstructive pulmonary disease with (acute) exacerbation; J98.11 Atelectasis; F17.210 Nicotine dependence, cigarettes, uncomplicated; I10 Essential (primary) hypertension; I25.10 Atherosclerotic heart disease of native coronary artery without angina pectoris; E78.5 Hyperlipidemia, unspecified; J96.01 Acute respiratory failure with hypoxia; K59.00 Constipation, unspecified; Z95.1 Presence of aortocoronary bypass graft
CPT/HCPCS: 31500; 36600; 71010; 71275; 80053; 81001; 82310; 82435; 82550; 82565; 82805; 82947; 83605; 83735; 83880; 84100; 84132; 84295; 84443; 84484; 84520; 85007; 85025; 85027; 85610; 85730; 86850; 86900; 86901; 87040; 87076; 87086; 87185; 87205; 87641; 92950; 93005; 94002; 94003; 94060; 94640; 94664; 96365; 96374; 96375; C9113; J0171; J0330; J0456; J1650; J2250; J2543; J2930; J7030; J7050; J7512; Q9967

== ENCOUNTER → 2017-06-29 | Outpatient (CLI) | payer MEDICARE, OTHER ==
[~2017-06-29] MED LIST changes: +ADVA250A INH; +AMOX875T2 PO; -ASPI1TAB69 PO; +ASPI81TA11 PO; +CARV3.12 PO; -EPINEPHrine HCL (1:10,000) 1 MG/10 ML SYRINGE IV ONE; +FAMO20TA2 PO; -MULT1TAB84 PO; +PRED10 PO; -PRED20 PO; +SPIRCAP INH
--- NOTE | 2017-06-30 08:52 | RSPPFT ---
DATE OF PROCEDURE: 06/29/17 COMMENTS: Spirometry with FVC of 2.3 predicted 3.9, FEV1 of 0.9 predicted 3.1, FEV1/FVC ratio 41% predicted 79%. Post-bronchodilator FVC increases to 2.8. Significant air trapping is present with RV at 4.6 predicted 2.3. DLCO is 37% of predicted. IMPRESSION: On the basis of the above, patient has an obstructive lung defect with air trapping and decreased DLCO.
== END ==
LOC: HRSP 12:51
PROVIDERS: ATTEND Internal Medicine Pulmonary Disease
DX: J44.9 Chronic obstructive pulmonary disease, unspecified (principal)
CPT/HCPCS: 94060; 94620; 94726; 94729